=== PATIENT | male | born 1960 | race Caucasian/White ===

== ENCOUNTER 2024-11-22 11:34 | Outpatient (CLI) | payer OTHER, SELFPAY ==
--- OUTSIDE RECORDS SUMMARY | 2024-11-22 11:59 | XMS_ITS | Patient Health Record ---
Author Organization Formerly [facility], Later [facility] dicine Address [address] [place] [address] Care Team Providers Care Directory Operator Name Role Phone Dr. Sushma Ellington Primary Care Provider [phone] Wilner Frias Unavailable [phone] Migration, Provider Unavailable Unavailable Allergies No Known Allergies Results Component Value Reference Range Notes CBC w/ Diff Reviewed date:12/03/2023 12:00:00 AM Interpretation: Performing Lab: Notes/Report: Baso Absolute 0.1 x10*3/mcL Basophil Auto 0.9 % Eos Absolute 0.3 x10*3/mcL Eosinophil Auto 4.8 % Hct 45.1 % Hgb 15.0 g/dL Lymph Absolute 1.2 x10*3/mcL Lymph Auto 18.9 % MCH 30.2 pg MCHC 33.3 g/dL MCV 90.8 fL Mcclain Absolute 0.5 x10*3/mcL Mcclain Auto 7.9 % MPV 8.7 fL Neutro Absolute 4.4 x10*3/mcL Neutro Auto 67.5 % Platelets 218 K/mcL RBC 4.96 x10*6/mcL RDW 13.8 % WBC 6.6 K/mcL Comprehensive Metabolic Pane l Reviewed date:12/03/2023 12:00:00 AM Interpretation: Performing Lab: Notes/Report: Albumin Lvl 4.2 g/dL Albumin/Globulin Ratio 1.9 Alk Phos 86 unit/L ALT 57 unit/L ANION GAP 4.2 mmol/L AST 28 unit/L Bilirubin Total 0.7 mg/dL BUN 17 mg/dL Calcium Lvl 9.1 mg/dL Chloride Lvl 107 mmol/L CO2 29 mmol/L Creatinine Lvl 1.00 mg/dL eGFR CKD-EPI 85 mL/min/1.73 m2 Glucose Lvl 102 mg/dL Potassium Lvl 4.8 mmol/L Protein Total 6.5 g/dL Sodium Lvl 140 mmol/L Hemoglobin A1c {Glycosylated } Reviewed date:12/03/2023 12:00:00 AM Interpretation: Performing Lab: Notes/Report: eAvg Glucose 128 mg/dL Hemoglobin A1c 6.1 % Lipid Panel {Chol, Trig, HDL , LDL} Reviewed date:12/03/2023 12:00:00 AM Interpretation: Performing Lab: Notes/Report: Chol/HDL 5 Cholesterol Total 130 mg/dL Coronary Risk 22 % HDL 28 mg/dL LDL 86 mg/dL NON HDL CHOLESTEROL 102 mg/dL Triglycerides 78 mg/dL T4 Free Reviewed date:12/03/2023 12:00:00 AM Interpretation: Performing Lab: Notes/Report: T4 Free 0.76 ng/dL Thyroid Stimulating Hormone Reviewed date:12/03/2023 12:00:00 AM Interpretation: Performing Lab: Notes/Report: TSH 3.09 mcIU/mL Vitamin B12 Reviewed date:12/03/2023 12:00:00 AM Interpretation: Performing Lab: Notes/Report: Vitamin B12 Lvl 580 pg/mL Vitamin D 25 Hydroxy Reviewed date:12/03/2023 12:00:00 AM Interpretation: Performing Lab: Notes/Report: Vitamin D 25 OH 37 ng/mL Chest X-ray PA and lateral Reviewed date:10/07/2024 02:27:34 PM Interpretation: Performing Lab: Notes/Report: Comprehensive Metabolic Pane l Reviewed date:01/09/2024 12:00:00 AM Interpretation: Performing Lab: Notes/Report: Albumin Lvl 4.4 g/dL Albumin/Globulin Ratio 1.7 Alk Phos 81 unit/L ALT 44 unit/L ANION GAP 4.8 mmol/L AST 25 unit/L Bilirubin Total 0.7 mg/dL BUN 19 mg/dL Calcium Lvl 9.3 mg/dL Chloride Lvl 109 mmol/L CO2 26 mmol/L Creatinine Lvl 0.95 mg/dL eGFR CKD-EPI 90 mL/min/1.73 m2 Glucose Lvl 102 mg/dL Potassium Lvl 5.1 mmol/L Protein Total 7.0 g/dL Sodium Lvl 140 mmol/L PSA Annual Screening Reviewed date:01/09/2024 12:00:00 AM Interpretation: Performing Lab: Notes/Report: PSA Total 4.44 ng/mL Reason For Referral Reason elevated PSA Diagnosis 1 Elevated prostate sp ecific antigen [PSA] (R97.20) Referral Organization [facility] Referring Provider First Name Dr. Ordaz Referring Provider Last Name [place] Referring Provider [facility] taran Referred Provider Marbin Dee Referred Provider Specialty Urology General Notes Sofya Templeton 06/03 03:03:14 PM DIET ASSISTANT >this was ordered in - they made a chart, but stated no clinical documents were uploaded. Referral team can you refax labs and OV for this. Was originally sent in Mar 2024? The person I spoke to in the office stated to fax to [phone] and they will call pt now to schedule an appt., Yamini Gould 06/03/2024 04:47:10 PM DIET ASSISTANT >Faxed referral with OV and labs to Dr. Dee Clinical Notes Sofya Templeton 06/24 02:56:41 PM DIET ASSISTANT >consult note in chart. Referral Priority Stat Referral Appointment Date 06/07/2024 Medications Medication SIG (Take, Route, Frequency, Duration) Notes Start Date End Date Status Vitamin C oral; Duration: 0 *Pick strength-form from [facility] for eRX* 12/05/2021 Active Zinc oral; Duration: 0 *Pick strength-form from [facility] for eRX* 12/05/2021 Active Vitamin B Complex oral; Duration: 0 *Pick strength-form from [facility] for eRX* 12/05/2021 Active Omeprazole 20 MG Capsule Delayed Release 1 Oral every day; Duration: 90 12/08/2023 12/01/2024 Active predniSONE 20 MG Tablet 2 tablets Orally Once a day; Duration: 5 days take with food 05/21/2024 Active Levothyroxine Sodium 50 MCG Tablet 1 Oral every day; Duration: 90 12/08/2023 12/01/2024 Active Vitamin D3 oral; Duration: 0 *Pick strength-form from [facility] for eRX* 12/05/2021 Active Immunizations Vaccine Route Administration Date Status Comme nts Zoster IM Intramuscular 12/05/2021 Administered ,[facility] : New immunization record ,immstatus : Complete Zoster IM Intramuscular 02/27/2022 Administered ,[facility] : New immunization record ,immstatus : Complete Tdap Unknown 03/16/2011 Administered ,sourcename : Historical information -from other registry Source C Code: : Tdap IM Intramuscular 01/02/2016 Administered Source VFC Code: : MMR Unknown 12/02/2018 Administered ,sourcename : Historical information -from other registry Source VFC Code: : Social History Social History Additional Details Category Social Info Options Details Migrated Social History Migrated Social History Tobacco history:Currently uses smokeless tobacco Problems Problem Type SNOMED Code ICD Code Onset Dates Problem Status W/U Status Risk Notes Problem Generalized atopic dermatitis (055243254) Other atopic dermatitis and related conditions (691.8) 06/12/19 17 Active confirmed Problem Actinic keratosis (402749) Actinic keratosis (702.0) 06/12/19 17 Active confirmed Problem Arthralgia of the pelvic region and thigh (893600908) Pain in joint, pelvic region and thigh (719.45) 10/24/19 17 Active confirmed Problem Pain in limb (20443620) Pain in soft tissues of limb (729.5) 11/06/19 16 Active confirmed Problem General examination of patient (858466047) Routine general medical examination at health care facility (V70.0) 06/12/19 17 Active confirmed Problem Hypothyroidism (11549645) Hypothyroidism, unspecified (E03.9) 12/04/19 22 Active confirmed Problem Vitamin B deficiency (46160142) Deficiency of other specified B group vitamins (E53.8) 12/05/19 23 Active confirmed Problem Acute atopic conjunctivitis (52667346) Acute atopic conjunctivitis, unspecified eye (H10.10) 12/08/19 24 Active confirmed Problem Actinic keratosis (855070) Actinic keratosis (L57.0) 06/09/19 24 Active confirmed Problem Seborrheic keratosis (29910664) Other seborrheic keratosis (L82.1) 06/09/19 24 Active confirmed Problem Hypertrophic condition of skin (14477857) Other hypertrophic disorders of the skin (L91.8) 12/06/19 22 Active confirmed Problem Enthesopathy of knee (72409080) Other bursitis of knee, unspecified knee (M70.50) 12/18/19 24 Active confirmed Problem Screening for malignant neoplasm of prostate (384492323) Encounter for screening for malignant neoplasm of prostate (Z12.5) 12/04/19 22 Active confirmed Problem Tobacco use (582503461) Tobacco use (Z72.0) 12/02/19 24 Active confirmed Problem Elevated PSA (376323489) Elevated prostate specific antigen [PSA] (R97.20) 01/09/20 24 Active confirmed Problem Acquired hypothyroidism (003731628) Other specified acquired hypothyroidism (244.8) 09/26/19 19 Problem resolved confirmed Problem Psychosexual dysfunction associated with inhibited sexual excitement (361146923608495) 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) 06/12/19 17 Problem resolved confirmed Problem Tobacco user (460193160) Nondependent tobacco use disorder (305.1) 11/06/19 16 Problem resolved confirmed Problem Allergic rhinitis (10820645) Allergic rhinitis, cause unspecified (477.9) 09/26/19 19 Problem resolved confirmed Problem Acute bronchitis (68941987) Acute bronchitis (466.0) 11/06/19 16 Problem resolved confirmed Problem Cramp in limb (939172249) Cramp of limb (729.82) 09/26/19 19 Problem resolved confirmed Problem Spasm (71472701) Spasm of muscle (728.85) 11/06/19 16 Problem resolved confirmed Problem Malaise and fatigue (791880196) Other malaise and fatigue (780.79) 09/26/19 19 Problem resolved confirmed Problem Viral screening (888882558) Special screening examination for other specified viral diseases (V73.89) 06/12/19 17 Problem resolved confirmed Problem Male erectile disorder (766390238) Male erectile disorder (F52.21) 06/12/19 17 Problem resolved confirmed Problem Acute pansinusitis (5891357) Acute pansinusitis, unspecified (J01.40) 11/06/19 16 Problem resolved confirmed Problem Acute bronchitis (05598085) Acute bronchitis, unspecified (J20.9) 11/06/19 16 Problem resolved confirmed Problem Allergic rhinitis (89386646) Allergic rhinitis, unspecified (J30.9) 09/26/19 19 Problem resolved confirmed Problem Atopic dermatitis (83259382) Atopic dermatitis, unspecified (L20.9) 06/12/19 17 Problem resolved confirmed Problem Arthralgia of the pelvic region and thigh (398075144) Pain in right hip (M25.551) 10/24/19 17 Problem resolved confirmed Problem Spasm (04772311) Other muscle spasm (M62.838) 11/06/19 16 Problem resolved confirmed Problem Pain in left leg (189274658) Pain in left leg (M79.605) 11/06/19 16 Problem resolved confirmed Problem Blood chemistry abnormal (684098457) Other specified abnormal findings of blood chemistry (R79.89) 12/07/19 22 Problem resolved confirmed Problem History of thromboembolism of vein (536498422) Personal history of other venous thrombosis and embolism (Z86.718) 11/06/19 16 Problem resolved confirmed Problem Screening for malignant neoplasm of prostate (050163642) Special screening for malignant neoplasm of prostate (V76.44) 09/26/19 19 Problem resolved confirmed Problem Ganglion cyst (761090560) Ganglion, unspecified site (M67.40) 06/09/19 24 Active confirmed Problem Gastro-esophageal reflux disease without esophagitis (880593664) Gastro-esophageal reflux disease without esophagitis (K21.9) 12/04/19 22 Active confirmed Problem Vitamin D deficiency (85232367) Vitamin D deficiency, unspecified (E55.9) 12/05/19 23 Active confirmed Problem Lipoma (17128878) Benign lipomat ous neoplasm, 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) 12/06/19 22 Active confirmed Problem Tinea unguium (589481591) Tinea unguium (B35.1) 12/08/19 24 Active confirmed Problem Esophageal reflux (360842470) Esophageal reflux (530.81) 11/06/19 16 Active confirmed Problem Enlarged prostate (758276835) Enlarged prostate without lower urinary tract symptoms (N40.0) 05/22/20 22 Active confirmed Problem Hyperglycemia (69734122) Hyperglycemia, unspecified (R73.9) 12/06/19 22 Active confirmed Problem Viral screening (748398475) Encounter for screening for other viral diseases (Z11.59) 06/12/19 17 Problem resolved confirmed Problem Family history: Cardiovascular disease (situation) (093225437) Family history of other cardiovascular diseases (V17.4) 11/06/19 16 Problem resolved confirmed Problem Acute sinusitis (disorder) (95221111) Other acute sinusitis (461.8) 11/06/19 16 Problem resolved confirmed Problem Prediabetes (472272047) Prediabetes (R73.03) 12/07/19 23 Active confirmed Problem Immunization not carried out because of patient refusal (Z28.21) 12/06/19 22 Active confirmed Problem Vaccination given (825144447) Encounter for immunization (Z23) 12/06/19 22 Active confirmed Problem Adult health examination (891026100) Encounter for general adult medical examination without abnormal findings (Z00.00) 12/06/19 22 Active confirmed Problem Pain in limb (51246610) Pain in right toe(s) (M79.674) 06/09/19 24 Active confirmed Problem Knee joint effusion (647481272) Effusion, right knee (M25.461) 12/26/19 24 Active confirmed Problem Umbilical hernia (374912920) Umbilical hernia without obstruction or gangrene (K42.9) 12/08/19 24 Active confirmed Problem Fatigue (30693608) Other fatigue (R53.83) 09/26/19 19 Problem resolved confirmed Problem Spasm (57452753) Cramp and spasm (R25.2) 09/26/19 19 Problem resolved confirmed Problem Vaccination needed (008731805392441) Need for prophylactic vaccination and inoculation, Other viral diseases (V04.89) 09/26/19 19 Problem resolved confirmed Vital Signs Heart Rate 106 /min 05/21/2024 Temperature 96.9 degrees Fahrenheit 05/21/2024 Respiratory Rate 24 /min 05/17/2024 Height-cm 182.88 cm 05/21/2024 Oximetry 96 % 05/21/2024 Blood pressure diastolic 88 mm Hg 05/21/2024 Weight-kg 126.35 kg 01/08/2024 Height 72.00 in 05/21/2024 Blood pressure systolic 130 mm Hg 05/21/2024 Weight 278.55 lbs 01/08/2024 Encounters Encounter Location Date Provider Diagnosis [facility] [address] [place] [address] 12/02/2023 Provider Migration Tobacco use Z72.0 ; Vitamin D deficiency, unspecified E55.9 ; Encounter for general adult medical examination without abnormal findings Z00.00 ; Hyperglycemia, unspecified R73.9 ; Prediabetes R73.03 ; Deficiency of other specified B group vitamins E53.8 and Hypothyroidism, unspecified E03.[address] [address] 12/08/2023 Dr. Sushma Ellington Vitamin D deficiency, unspecified E55.9 ; Encounter for general adult medical examination without abnormal findings Z00.00 ; Gastro-esophageal reflux disease without esophagitis K21.9 ; Acute atopic conjunctivitis, unspecified eye H10.10 ; Prediabetes R73.03 ; Umbilical hernia without obstruction or gangrene K42.9 ; Deficiency of other specified B group vitamins E53.8 ; Encounter for screening for malignant neoplasm of prostate Z12.5 ; Hypothyroidism, unspecified E03.9 and Tinea unguium B35.[address] [address] 12/18/2023 Wilner Rodriguez Other bursitis of knee, unspecified knee M70.[address] [address] 12/26/2023 Wilner Rodriguez Effusion, right knee M25.461 and Other bursitis of knee, unspecified knee M70.[address] [address] 01/08/2024 Wilner Rodriguez Effusion, right knee M25.461 and Other bursitis of knee, unspecified knee M70.[address] [address] 01/09/2024 Provider Migration Other bursitis of knee, unspecified knee M70.50 ; Elevated prostate specific antigen [PSA] R97.20 and Tobacco use Z72.[address] [address] 01/13/2024 Provider Migration Elevated prostate specific antigen [PSA] R97.20 and Tobacco use Z72.[address] [address] 04/09/2024 Provider Migration Tinea unguium B35.1 ; Tobacco use Z72.0 and Elevated prostate specific antigen [PSA] R97.[address] [address] 04/13/2024 Provider Migration Elevated prostate specific antigen [PSA] R97.20 and Tobacco use Z72.[address] [address] 05/17/2024 Dr. Sushma Ellington Acute cough R05.1 ; Acute non-recurrent sinusitis, unspecified location J01.90 ; Acute pneumonia J18.9 and Seborrheic keratosis L82.[address] [address] 05/21/2024 Dr. Sushma Ellington Acute pneumonia J18.9 and Acute cough R05.[address] [address] 04/24/2024 Provider Migration [address] [address] 04/25/2024 Provider Migration Assessments Encounter Date Diagnosis (ICD Code) Assessment Notes Treatment Notes Treatment Clinical Notes Section Notes 04/09/2024 Tinea unguium (ICD-10 - B35.1) 04/09/2024 Tobacco use (ICD-10 - Z72.0) 04/09/2024 Elevated prostate specific antigen [PSA] (ICD-10 - R97.20) 01/09/2024 Other bursitis of knee, unspecified knee (ICD-10 - M70.50) 01/09/2024 Tobacco use (ICD-10 - Z72.0) 01/09/2024 Elevated prostate specific antigen [PSA] (ICD-10 - R97.20) 01/08/2024 Effusion, right knee (ICD-10 - M25.461) 01/08/2024 Other bursitis of knee, unspecified knee (ICD-10 - M70.50) 12/26/2023 Effusion, right knee (ICD-10 - M25.461) 12/26/2023 Other bursitis of knee, unspecified knee (ICD-10 - M70.50) 12/08/2023 Tinea unguium (ICD-10 - B35.1) 12/08/2023 Hypothyroidism, unspecified (ICD-10 - E03.9) 12/08/2023 Deficiency of other specified B group vitamins (ICD-10 - E53.8) 12/08/2023 Vitamin D deficiency, unspecified (ICD-10 - E55.9) 12/08/2023 Acute atopic conjunctivitis, unspecified eye (ICD-10 - H10.10) 12/08/2023 Gastro-esophagea l reflux disease without esophagitis (ICD-10 - K21.9) 12/08/2023 Umbilical hernia without obstruction or gangrene (ICD-10 - K42.9) 12/08/2023 Encounter for general adult medical examination without abnormal findings (ICD-10 - Z00.00) 12/08/2023 Encounter for screening for malignant neoplasm of prostate (ICD-10 - Z12.5) 12/08/2023 Prediabetes (ICD-10 - R73.03) 01/13/2024 Tobacco use (ICD-10 - Z72.0) 01/13/2024 Elevated prostate specific antigen [PSA] (ICD-10 - R97.20) 05/21/2024 Acute cough (ICD-10 - R05.1) 05/21/2024 Acute pneumonia (ICD-10 - J18.9) CXR doesn't show infiltrate but does show some hazy appearance. continue moxifloxacin start codeine for the severe cough start prednisone consider adding symbicort call if not improving next week 12/18/2023 Other bursitis of knee, unspecified knee (ICD-10 - M70.50) 04/13/2024 Tobacco use (ICD-10 - Z72.0) 04/13/2024 Elevated prostate specific antigen [PSA] (ICD-10 - R97.20) 12/02/2023 Hypothyroidism, unspecified (ICD-10 - E03.9) 12/02/2023 Deficiency of other specified B group vitamins (ICD-10 - E53.8) 12/02/2023 Vitamin D deficiency, unspecified (ICD-10 - E55.9) 12/02/2023 Hyperglycemia, unspecified (ICD-10 - R73.9) 12/02/2023 Encounter for general adult medical examination without abnormal findings (ICD-10 - Z00.00) 12/02/2023 Tobacco use (ICD-10 - Z72.0) 12/02/2023 Prediabetes (ICD-10 - R73.03) 05/17/2024 Acute cough (ICD-10 - R05.1) 05/17/2024 Acute non-recurrent sinusitis, unspecified location (ICD-10 - J01.90) 05/17/2024 Acute pneumonia (ICD-10 - J18.9) Recommend consideration for a chest x-ray if not improving but for today we'll start antibiotics and get a steroid shot to help with the cough since it's severe period consider codeine cough syrup if needed. Use mucinex DM OTC. Call later in the week if not better and will order CXR. 05/17/2024 Seborrheic keratosis (ICD-10 - L82.1) reassurance given for these skin lesions Plan Of Treatment Next Appt Details Provider Name:Dr. Sushma ibarra, 01/20/2025 11:00:00 AM, [address] [place] [address], [address], [phone] Insurance Providers Payer Name Payer Address Payer Phone Subscriber Number Group Number Insured Name Patient Relationship to Insured Coverage Start Date Coverage End Date [facility] [address] [address] [place] [address] [id number] Donnie Gutierrez Self - patient is the insured 3 Medications Administered Medication Instructions Date of Administration Dosage Notes dexAMETHasone 05/17/2024 6 mg Medical (General) History Surgical History Surgery Date(Month/Year) Arthroscopy ,notes : knee Colonoscopy, flexible, proxi mal to splenic flexure; diagnostic, with or without collection of specim 7
--- OUTSIDE RECORDS SUMMARY | 2024-11-22 11:59 | XMS_ITS | Clinical Summary ---
Author Organization [facility] Health Address [address] [place] [address] Care Team Providers Care Agriculture Technician Name Role Phone Sushma Ellington MD Primary Care Provider Source Comments [facility],non-owned Affiliates and Associated Physician Practices is amultiple site organization consisting of ambulatory clinics and hospital sitesin [place], [place], [place] and [place]. This disclosure is being madepursuant to the Care Everywhere program and may not contain all information available regarding this patient. 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 Gender Identity Not on file Sexual Orientation Not on file Last Filed Vital Signs Vital Sign Reading Time Taken Comments Blood Pressure 105/68 01/07/2012 11:46 AM CDT Pulse 76 01/07/2012 10:32 AM CDT Temperature 36.5 C (97.7 F) 01/07/2012 10:32 AM CDT Respiratory Rate 18 01/07/2012 10:32 AM CDT Oxygen Saturation 94% 01/07/2012 11:46 AM CDT Inhaled Oxygen Concentration - - Weight 117.9 kg (260 lb) 01/07/2012 10:32 AM CDT Height 182.9 cm (6') 01/07/2012 10:32 AM CDT Body Mass Index 35.26 01/07/2012 10:32 AM CDT Plan of Treatment Health Maintenance Due Date Last Done Comments COLOGUARD (AGES 45-75) - COL ON CA SCREENING 1961 COLON MONITORING 1961 COLONOSCOPY - COLON CA SCREENING 1961 CT COLONOGRAPHY - COLON CA SCREENING 1961 Colorectal Cancer Screening 1961 FIT - COLON CA SCREENING 1961 FLEX SIG - COLON CA SCREENING 1961 LIPID TESTING 1961 HIV SCREENING 1976 HEPATITIS C SCREENING 07/16/1979 DTAP/TDAP/TD VACCINES (1 - Tdap) 1980 PNEUMOCOCCAL VACCINE 50+ (1 of 1 - PCV) 2011 ZOSTER VACCINE (1 of 2) 2011 COVID-19 VACCINE ( - 2023-2 5 season) 2024 DEPRESSION SCREENING 05/26/2024 INFLUENZA VACCINE (Season Ended) 2025 Respiratory Syncytial Virus (RSV) Vaccine Pt: or over 60 yrs (1 - 1-dose 75+ series) 2036 HEPATITIS B VACCINE Aged Out No longe r eligible based on patient's age to complete this topic HIB VACCINE Aged Out No longer eligi ble based on patient's age to complete this topic HPV VACCINE Aged Out No longer eligi ble based on patient's age to complete this topic MENINGOCOCCAL (Group B) VACC INE SHARED DECISION-MAKING Aged Out No longer eligibl e based on patient's age to complete this topic MENINGOCOCCAL GROUPS A/C/Y/W VACCINE Aged Out No longer eligible b ased on patient's age to complete this topic Insurance [facility] Care Teams Agriculture Technician Relationship Specialty Start Date End Date Sushma Ellington MD [address] [place] [id number] PCP - General Family Medicine 02/06/24
--- OUTSIDE RECORDS SUMMARY | 2024-11-22 11:59 | XMS_ITS | Clinical Summary ---
Author Organization [facility] Address [address] [place] [address] Phone Care Team Providers Care Geospatial Technician Name Role Phone Sushma Ellington MD Primary Care Provider Allergies No known active allergies Medications levothyroxine (SYNTHROID) 50 MCG Tablet Take 50 mcg by mouth daily. Active omeprazole (PRILOSEC) 40 MG CAPSULE DELAYED RELEASE Take 40 mg by mouth daily. Active Social History Tobacco Use Types Packs/Day Years Used Date Smoking Tobacco: Never Smokeless Tobacco: Current Chew Alcohol Use Standard Drinks/Week Comments Yes 0 (1 standard drink = 0.6 oz pur e alcohol) rare Sex and Gender Information Value Date Recorded Sex Assigned at Not on file Legal Sex Male 8:44 PM CDT Gender Identity Not on file Sexual Orientation Not on file Last Filed Vital Signs Vital Sign Reading Time Taken Comments Blood Pressure 121/80 01/30/2019 11:57 AM CDT Pulse 66 01/30/2019 11:57 AM CDT Temperature 36.9 C (98.4 F) 01/30/2019 10:17 AM CDT Respiratory Rate 18 01/30/2019 11:57 AM CDT Oxygen Saturation 95% 01/30/2019 11:57 AM CDT Inhaled Oxygen Concentration - - Weight 117.9 kg (260 lb) 01/30/2019 10:17 AM CDT Height 193 cm (6' 4) 01/30/2019 10:17 AM CDT Body Mass Index 31.65 01/30/2019 10:17 AM CDT Plan of Treatment Health Maintenance Due Date Last Done Comments Hepatitis C Virus (HCV) Screening 1960 Cologuard 2006 Colonoscopy 2006 Colorectal Cancer Screening 2006 Immunochemical Fecal Occult Blood 2006 Pneumococcal Immunization (50+ years) (1 of 1 - PCV) 2011 Zoster Immunization (1 of 2) 2011 SARS-COV-2 Immunization (1 - 2023- season) 2024 Influenza Immunization (Season Ended) 2025 Respiratory Syncytial Virus (RSV) Immunization (Adult) (1 - 1-dose 75+ series) 2036 Hepatitis B Immunization Completed 002, 08/20/2001, 06/23/2001, Additional history exists DTaP/Tdap/Td Immunization Discontinued 2015, 03/16/2011, 09/09/2003, Additional history exists TdaP Immunization Completed 01/02/2016, 03/16/2011 Human Papillomavirus (HPV) Immunization Aged Out No longer eligible based on patient's age to complete this topic Meningococcal Immunization (ACWY) Aged Out No longer eligible based on patient's age to complete this topic Rotavirus Immunization Aged Out No lo nger eligible based on patient's age to complete this topic Insurance Care Teams Geospatial Technician Relationship Specialty Start Date End Date Sushma Ellington MD PCP - General Family Medicine 01/29/19
--- OUTSIDE RECORDS SUMMARY | 2024-11-22 11:59 | XMS_ITS | Clinical Summary ---
Author Organization [employer] [facility] Address [address] [place] [address] Phone Care Team Providers Care Water Jet Operator Name Role Phone Sushma Ellington MD Primary Care Provider Allergies No known active allergies Medications omeprazole (PRILOSEC) 40 mg Capsule, Delayed Release(E.C.) Take 40 mg by mouth daily. Active multivitamin (DAILY-ALMITA) tablet Take 1 Tablet by mouth daily. Active Cholecalciferol, Vitamin D3, 3,000 unit Tablet Take by mouth. Active levothyroxine 50 mcg tablet Take 50 mcg by mouth daily in the morning. Active Family History Medical History Relation Name Comments Colon Cancer Brother Relation Name Status Comments Brother Social History Tobacco Use Types Packs/Day Years Used Date Smoking Tobacco: Never Smokeless Tobacco: Current Chew Alcohol Use Standard Drinks/Week Comments Yes 0 (1 standard drink = 0.6 oz pur e alcohol) social Sex and Gender Information Value Date Recorded Sex Assigned at Not on file Legal Sex Male 11:30 AM CDT Gender Identity Not on file Sexual Orientation Not on file Last Filed Vital Signs Vital Sign Reading Time Taken Comments Blood Pressure 102/71 01/31/2021 9:26 AM CDT Pulse 58 01/31/2021 9:26 AM CDT Temperature 36.7 C (98 F) 01/31/2021 9:10 AM CDT Respiratory Rate 16 01/31/2021 9:26 AM CDT Oxygen Saturation 96% 01/31/2021 9:26 AM CDT Inhaled Oxygen Concentration - - Weight 120.1 kg (264 lb 12.8 oz) 01/31/2021 7:58 AM CDT Height 182.9 cm (6') 01/31/2021 7:58 AM CDT Body Mass Index 35.91 01/31/2021 7:58 AM CDT Plan of Treatment Health Maintenance Due Date Last Done Comments DTAP/TDAP/TD VACCINES (1 - Tdap) 1980 FIT-DNA Q 3 years 2006 FIT/FOBT Q 1 year 2006 Flex Sig/CT Colonography Q 5 years 2006 ZOSTER VACCINE (1 of 2) 2011 INFLUENZA VACCINE (#1) 2023 COLORECTAL SCREENING 01/31/2026 01/31/2021, 01/31/2021, 01/31/2021, Additional history exists Colorectal Cancer Screening 01/31/2026 RSV VACCINE (60+ or ) (1 - 1-dose 75+ series) 2036 Procedures Procedure Name Priority Date/Time Associated Diagnosis Comments COLONOSCOPY REPORT 01/31/2021 9: 13 AM CDT from Last 3 Months or Most Recently Relevant to Health Maintenance Results * COLONOSCOPY REPORT (01/31/2021 9:13 AM CDT) Narrative Procedure Note Gunnar Tomas MD - 01/31/2021 9:11 AM CDT [facility] Endoscopy Patient Name: Donnie Gutierrez Procedure Date: 01/31/2021 Date of : 1960 Attending MD: Gunnar Tomas MD Procedure: Colonoscopy Indications: High risk colon cancer surveillance: Personal history of colonic polyps. He had adenomatous polyp removed in 2000. He had 1.8 cm adenoma removed in 2010. Last colonoscopy in 2016 without neoplasia. Brother of metastatic colon cancer age 59. Providers: Gunnar Tomas MD Referring MD: Sushma Ellington MD Medicines: TIVA Complications: No immediate complications. Procedure: Informed consent was obtained for the procedure, including moderate sedation after risks were discussed. Based on the pre-procedure assessment, including review of the patient's medical history, medications, allergies, and review of systems, the patient was deemed to be an appropriate candidate for sedation. A timeout was performed. Continuous ECG monitoring, pulse oximetry, blood pressure monitoring, and direct observation were performed. The scope was introduced through the anus and advanced to the cecum, identified by appendiceal orifice and ileocecal valve. The colonoscopy was performed without difficulty. The patient tolerated the procedure well. The quality of the bowel preparation was excellent. Estimated Blood Loss: Estimated blood loss was minimal. Findings: Internal hemorrhoids were seen on retroflexion. There was a benign appearing 2 mm diameter diminutive left colon polyp completely removed via cold forceps. Remainder appeared normal to the cecum. No evidence for colon cancer or inflammatory bowel disease. Cecum and ileocecal valve well visualized and appeared normal. Impression: 1. Internal hemorrhoids 2. Benign appearing 2 mm diameter diminutive left colon polyp completely removed via cold forceps. 3. Otherwise normal colonoscopy. No colon cancer or inflammatory bowel disease. Recommendation: Reassurance. Await pathology. Repeat colonoscopy in 5 years due to high risk personal/family history and finding of diminutive polyp on current exam. Follow up with Dr. Ellington for medical issues. Gunnar Tomas MD 01/31/2021 9:10:58 AM This report has been signed electronically. Number of Addenda: [address]; [place] [address] Gunnar Tomas MD GI PROCEDURE ORDERABLES Final Re sult from Last 3 Months or Most Recently Relevant to Health Maintenance Advance Directives For more information, please contact: [phone] * Full Code (Latest Code Status on File) Date Activated Date Inactivated Comments 01/31/2021 8:06 AM 01/31/2021 12:35 PM * Full Code Date Activated Date Inactivated Comments 08/25/2015 8:59 AM 08/25/2015 2:49 PM Care Teams Water Jet Operator Relationship Specialty Start Date End Date Sushma Ellington MD PCP - General Family Practice 08/16/15
--- OUTSIDE RECORDS SUMMARY | 2024-11-22 11:59 | XMS_ITS ---
Author Organization [facility] Address [address] [place] [id number] Care Team Providers Care Content Designer Name Role Phone Dr. Sushma Ellington Primary Care Provider [phone] Migration, Provider Unavailable Unavailable Allergies No Known Allergies REASON FOR VISIT EMR-Kofi Medications Medication SIG (Take, Route, Frequency, Duration) Notes Start Date End Date Status Levothyroxine Sodium 50 MCG Tablet 1 Oral every day; Duration: 90 12/08/2023 12/01/2024 Active Zinc oral; Duration: 0 *Pick strength-form from [employer] for eRX* 12/05/2021 Active Vitamin B Complex oral; Duration: 0 *Pick strength-form from [employer] for [facility]RX* 12/05/2021 Active Omeprazole 20 MG Capsule Delayed Release 1 Oral every day; Duration: 90 12/08/2023 12/01/2024 Active Vitamin C oral; Duration: 0 *Pick strength-form from [employer] for [facility]* 12/05/2021 Active Vitamin D3 oral; Duration: 0 *Pick strength-form from [employer] for [facility]* 12/05/2021 Active Social History Social History Additional Details Category Social Info Options Details Migrated Social History Migrated Social History Tobacco history:Currently uses smokeless tobacco Encounters Encounter Location Date Provider Diagnosis [facility] [address] [place] [address] 04/25/2024 Provider Migration Plan Of Treatment Next Appt Details Provider Name:Dr. Ordaz [facility], 01/20/2025 11:00:00 AM, [address] [place] [address] [employer] [facility], [place], [address], [phone] Progress Notes * Donnie GOODEDOB:1960 (64 yo M)Acc No.[id number]:04/25/2024 Patient: Donnie MEADE :1960 A ge:63 Y S ex:Male Address:[address] [place] [address], [phone] Subjective: * Chief Complaints: * E MR-Kofi * Surgical History: Arthroscopy ,notes : knee Colonoscopy, flexible, proximal to splenic flexure; diagnostic, with or without collection of specim 7 * Family History: Robert alicea: Colon Cancer. * Social History: M igrated Social History: M igrated Social History: Tobacco history:Currently uses smokeless tobacco. * Medications: T akingVitamin D3 oral , Notes to Pharmacist: *[facility]Zinc oral , Notes to Pharmacist: *[facility]*Vitamin B Complex oral , Notes to Pharmacist: *[facility]*Omeprazole 20 MG Capsule Delayed Release 1 Oral every day , stop date 12/01/2024Levothyroxine Sodium 50 MCG Tablet 1 Oral every day , stop date 12/01/2024Vitamin C oral , Notes to Pharmacist: *[facility]*Taking Vitamin D3 oral , Notes to Pharmacist: *[facility]*Taking Zinc oral , Notes to Pharmacist: *Pick strength-form from [facility]*Taking Vitamin B Complex oral , Notes to Pharmacist: *[facility]*Taking Omeprazole 20 MG Capsule Delayed Release 1 Oral every day , stop date 12/01/2024Taking Levothyroxine Sodium 50 MCG Tablet 1 Oral every day , stop date 12/01/2024Taking Vitamin C oral , Notes to Pharmacist: *[facility]* * Allergies: N .K.D.A. * * Date:
--- NOTE | 2024-11-22 12:20 | ECG_ITS ---
Test Date: 2024-11-22 12:37:42 Measurements Intervals Crawford Rate: 57 P: 42 ND: 174 QRS: -26 QRSD: 97 T: 17 QT: 400 QTc: 392 Interpretive Statements SINUS BRADYCARDIA EARLY PRECORDIAL R/S TRANSITION BORDERLINE T WAVE ABNORMALITY- INFERIOR LEADS BORDERLINE ECG No previous ECG available for comparison Electronically Signed On 11-22-2024 12:56:33 CDT by Martell Neri D.O.
[2024-11-22 13:10] LABS: Basophils Percent Auto 0.5 % (0.2-1.2); Eosinophils Absolute Auto 0.3 K/mm3 (0-0.3); Eosinophils Percent Auto 3.1 % (0-4.4); Hematocrit 48.1 % (42.0-52.0); Hemoglobin 15.5 g/dL (14.0-18.0); Immature Granulocyte Absolute 0.02 K/mm3 (0.00-0.031); Immature Granulocyte Percent A 0.2 % (0-0.5); Lymphocytes Absolute Auto 1.69 K/mm3 (0.9-3.2); Lymphocytes Percent Auto 20.3 % (18.3-44.2); Mean Corpuscular HGB Conc 32.2 g/dl (32-36); Mean Corpuscular Volume 93.2 fl (80-100); Mean Platelet Volume 10.1 fl (7.4-10.4); Monocytes Absolute Auto 0.6 K/mm3 (0.1-0.6); Monocytes Percent Auto 7.2 % (2.6-8.5); Neutrophils Absolute Auto 5.7 K/mm3 (1.3-6.7); Neutrophils Percent Auto 68.7 % (45.5-73.1); Platelet Count Result 235 k/mm3 (150-375); Red Blood Count 5.16 M/mm3 (4.6-6.20); Red Cell Distribution Width 13.2 % (11.5-14.5); White Blood Count 8.3 K/mm3 (4.5-10.0)
[2024-11-22 13:30] LABS: Prothrombin Time 13.4 Seconds (11.1-14.7)
[2024-11-22 13:31] LABS: Partial Thromboplastin Time 29.2 Seconds (22.3-36.8)
[2024-11-22 13:53] LABS: Alanine Aminotransferase 60 U/L (6-50); Albumin Level 4.2 g/dL (3.5-5.1); Alkaline Phosphatase 106 U/L (38-126); Anion Gap 8 mmol/L (4-12); Aspartate Amino Transferase 38 U/L (17-59); Bilirubin,Total 0.5 mg/dL (0.2-1.3); Blood Urea Nitrogen 16 mg/dL (9-20); Calcium 8.9 mg/dL (8.4-10.2); Carbon Dioxide 26 mmol/L (22-30); Chloride 107 mmol/L (98-107); Estimated Glomerular Filt Rate > 60; Glucose 111 mg/dL (65-110); Potassium 4.7 mmol/L (3.4-5.0); Sodium 141 mmol/L (137-145); Total Protein 7.1 g/dL (6.3-8.2)
== END 2024-11-22 11:35 | disposition home or self-care (01) ==
LOC: ANHSURGERY 11:40
PROVIDERS: PCP Family Medicine; Visit Provider Urology
DX: Z01.818 Encounter for other preprocedural examination (principal); C61 Malignant neoplasm of prostate; R94.31 Abnormal electrocardiogram [ECG] [EKG]
CPT/HCPCS: 36415; 80053; 85025; 85610; 85730; 86850; 86900; 86901; 87086; 93005

== ENCOUNTER 2024-11-30 00:58 | Day surgery (SDC) | payer OTHER, SELFPAY ==
[2024-11-22 12:00] VITALS: BP 138/81; PULSE 67; RESP 16; TEMP 36.8; O2SAT 100; BMI 35.9
--- NOTE | 2024-11-22 12:22 | PC.NURSE ---
Report to the Outpatient Waiting Room, entrance under the green pavilion located off [facility], at time _0630am on date _11/30/24 . Planned Procedure Time: __0830am .? Time changes happen often and if your time is changed the preop area will call you the afternoon before. - You and your visitor will be asked to self-screen and do not enter if you have any COVID symptoms. Please call surgeon if you need to reschedule. - A mask is optional within the hospital at this time. Patients may have clear liquids (water, carbonated beverages, clear teas, apple juice) until 3 hours prior to surgery with a maximum of 20 ounces. - No food from midnight until time of surgery and no smoking, or chewing tobacco (or any form of nicotine). No chewing gum, candy or mints. (05:30am) Take only the following medications with a SIP of water on the morning of surgery: Thyroxine and Tylenol if needed DO NOT STOP ANY OF YOUR OTHER PRESCRIPTION MEDICATIONS PRIOR TO SURGERY EXCEPT THE FOLLOWING Hold all vitamins and supplements for [address] Dee. Medications to discontinue per physician NO ALEVE, MOTRIN, IBUPROFEN, or ASA products for 7 days prior Date to take last dose____11/21/24 Please no make-up, nail turkmen, hairspray, perfume, deodorant, or body powder the day of surgery.? No jewelry (including any body piercings) or valuables the day of surgery, leave them at home.? Please take a shower or bath the night before, or the morning of, surgery with an antibacterial soap.? Wear comfortable, loose fitting clothing.? Bring overnight toiletries, cell phone, cell phone sub master, - Jewelry must be removed prior to entering the operating room.? Rings and piercings that are not removed may be cut off. - The hospital will not accept responsibility for valuables.? - Please leave all valuables, including medications, at home the day of surgery. If you are going home after surgery, a licensed hi low truck driver must drive you home.? - NO public transportation without another adult if you receive anesthesia. - We recommend that an adult stay with you for 24 hours following discharge. - We also recommend that you do not drive, make important decision, drink alcoholic beverages, or take any drugs that were not prescribed by your health care provider for at least 24 hours after your discharge time. Follow any additional instructions given to you from your surgeon. Telephone instructions given to _Patient & and asked if any additional questions and then verbalized understanding. Patient advised to call surgeon office or pre surgery nurse liaison [phone] if any additional questions.
[2024-11-30] VITALS (15 sets, daily range): BP systolic 103–146; BP diastolic 38–92; PULSE 55–87; RESP 12–16; TEMP 36.1–36.7; O2SAT 89–100; BMI 35.0
--- OUTSIDE RECORDS SUMMARY | 2024-11-30 01:01 | XMS_ITS | Clinical Summary ---
Author Organization [facility] Address [facility] [place] [address] Care Team Providers Care Dead Mail Checker Name Role Phone Sushma Ellington MD Primary Care Provider Allergies No known active allergies Medications omeprazole 40 MG capsule Take 1 capsule (40 mg total) by mouth daily. Active Cholecalciferol (VITAMIN D) 2000 units Tab Activ e levothyroxine 50 MCG tablet Take 1 tablet (50 mcg total) by mouth every morning. Active vitamin B-1 100 MG tablet Take 1 tablet (100 mg total) by mouth daily. Active Ascorbic Acid (VITAMIN C) 100 MG tablet Take 1 tablet (100 mg total) by mouth daily. Active zinc gluconate 50 MG Tab Take 1 tablet (50 mg total) by mouth daily. Active dextromethorpha n-guaiFENesin ER (MUCINEX DM) 30-600 MG TABLET SR 12 HR 12 hr tabletIndicatio ns:Viral URI with cough Take 1 tablet by mouth every 12 (twelve) hours as needed. 28 tablet 08/13/2022 Active methylPREDNISol one, HECTOR, (MEDROL DOSEPAK) 4 MG tabletIndicatio ns:Viral URI with cough,Fluid level behind tympanic membrane of both ears Take 1 tablet (4 mg total) by mouth daily. 6 TABLETS ON DAY ONE, 5 TABLETS DAY TWO, 4 TABLETS DAY THREE, 3 TABLETS DAY FOUR, 2 TABLETS DAY FIVE, AND 1 TABLET DAY SIX 1 each 08/13/2022 Active Social History Tobacco Use Types Packs/Day Years Used Date Smoking Tobacco: Never Smokeless Tobacco: Current Chew Tobacco Cessation:Ready to Q uit: Not Asked; Counseling Given: Not Answered Comments:6 cans a week for 45 years Sex and Gender Information Value Date Recorded Sex Assigned at Not on file Legal Sex Male 7:53 AM CDT Gender Identity Not on file Sexual Orientation Not on file Last Filed Vital Signs Vital Sign Reading Time Taken Comments Blood Pressure 114/70 08/13/2022 6:01 PM CDT Pulse 76 08/13/2022 6:01 PM CDT Temperature 36.6 C (97.8 F) 08/13/2022 6:01 PM CDT Respiratory Rate 16 08/13/2022 6:01 PM CDT Oxygen Saturation 98% 08/13/2022 6:01 PM CDT Inhaled Oxygen Concentration - - Weight 126.8 kg (279 lb 9.6 oz) 08/13/2022 6:01 PM CDT Height 182.9 cm (6') 08/13/2022 6:01 PM CDT Body Mass Index 37.92 08/13/2022 6:01 PM CDT Plan of Treatment Health Maintenance Due Date Last Done Comments Colorectal Cancer Screening Colonoscopy (10 Years) 1960 Annual Physical 1964 Hepatitis C 1979 Pneumococcal Vaccine: 50+ Years (1 of 1 - PCV) 2011 COVID-19 Vaccine ( - season) 2024 DTaP, Tdap and Td Vaccines (10 - Td or Tdap) 01/01/2026 01/02/2016, 03/16/2011, 03/16/2011, Additional history exists RSV Immunization or 60+ Years (1 - 1-dose 75+ series) 2036 Zoster Vaccines Completed 02/27/2022, 12/05/2021 Meningococcal B Vaccine Aged Out No l onger eligible based on patient's age to complete this topic Meningococcal Vaccine Aged Out No ambika cindy eligible based on patient's age to complete this topic RSV Immunizations Under 20 Months Aged Out No longer eligible based on patient's age to complete this topic Insurance Care Teams Dead Mail Checker Relationship Specialty Start Date End Date Sushma Ellington MD [address] [place] [address] PCP - General FAMILY PRACTICE 08/05/18
--- OUTSIDE RECORDS SUMMARY | 2024-11-30 01:01 | XMS_ITS | Clinical Summary ---
Author Organization [employer] [facility] Address [address] [place] [address] Phone Care Team Providers Care Motor Scooter Mechanic Name Role Phone Sushma Ellington MD Primary [...] (1 of 2) 2011 INFLUENZA VACCINE (#1) 2024 COLORECTAL SCREENING 01/31/2026 01/31/2021, 01/31/2021, 01/31/2021, Additional [...] Tomas MD - 01/31/2021 9:11 AM CDT [facility] Endoscopy Patient Name: Donnie Gutierrez Procedure [...] of Addenda: [address]; [place] [address] Gunnar Tomas MD GI PROCEDURE ORDERABLES Final Re sult from Last 3 Months or Most Recently Relevant to Health Maintenance Advance Directives For more information, please contact: [phone] * Full Code (Latest Code Status on File) Date Activated Date Inactivated Comments 01/31/2021 8:06 AM 01/31/2021 12:35 PM * Full Code Date Activated Date Inactivated Comments 08/25/2015 8:59 AM 08/25/2015 2:49 PM Care Teams Motor Scooter Mechanic Relationship Specialty Start Date End Date Sushma Ellington MD PCP - General Family Practice 08/16/15
--- OUTSIDE RECORDS SUMMARY | 2024-11-30 01:01 | XMS_ITS | Clinical Summary ---
Author Organization [facility] Address [address] [place] [address] Care Team Providers Care Cant Gang Sawyer Name Role Phone Sushma Ellington MD Primary Care Provider [phone] Source Comments [facility],non-owned Affiliates and Associated Physician Practices is amultiple site organization consisting of ambulatory clinics and hospital sitesin [place], [place], [place] and [place]. This disclosure is being madepursuant to the Care Everywhere program and may not contain all information available regarding this patient. 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
--- OUTSIDE RECORDS SUMMARY | 2024-11-30 01:01 | XMS_ITS | Patient Health Record ---
Author Organization [facility] Address [address] [place] [address] Care Team Providers Care Facial Operator Name Role Phone Dr. Sushma Ellington Primary Care Provider [phone] Wilner Frias Unavailable [phone] Migration, Provider Unavailable Unavailable Allergies No Known Allergies Results Component Value Reference Range Notes Comprehensive Metabolic Pane l Reviewed date:01/09/2024 12:00:00 [...] Performing Lab: Notes/Report: PSA Total 4.44 ng/mL Vitamin D 25 Hydroxy Reviewed date:12/03/2023 12:00:00 AM Interpretation: Performing Lab: Notes/Report: Vitamin D 25 OH 37 ng/mL Vitamin B12 Reviewed date:12/03/2023 12:00:00 AM Interpretation: Performing Lab: Notes/Report: Vitamin B12 Lvl 580 pg/mL Thyroid Stimulating Hormone Reviewed date:12/03/2023 12:00:00 AM Interpretation: Performing Lab: Notes/Report: TSH 3.09 mcIU/mL T4 Free Reviewed date:12/03/2023 12:00:00 AM Interpretation: Performing Lab: Notes/Report: T4 Free 0.76 ng/dL Lipid Panel {Chol, Trig, HDL , LDL} Reviewed date:12/03/2023 12:00:00 AM Interpretation: Performing Lab: Notes/Report: Chol/HDL 5 Cholesterol Total 130 mg/dL Coronary Risk 22 % HDL 28 mg/dL LDL 86 mg/dL NON HDL CHOLESTEROL 102 mg/dL Triglycerides 78 mg/dL Hemoglobin A1c {Glycosylated } Reviewed date:12/03/2023 12:00:00 AM Interpretation: Performing Lab: Notes/Report: eAvg Glucose 128 mg/dL Hemoglobin A1c 6.1 % CBC w/ Diff Reviewed date:12/03/2023 12:00:00 AM Interpretation: Performing Lab: Notes/Report: Baso Absolute 0.1 x10*3/mcL Basophil Auto 0.9 % Eos Absolute 0.3 x10*3/mcL Eosinophil Auto 4.8 % Hct 45.1 % Hgb 15.0 g/dL Lymph Absolute 1.2 x10*3/mcL Lymph Auto 18.9 % MCH 30.2 pg MCHC 33.3 g/dL MCV 90.8 fL Walker Absolute 0.5 x10*3/mcL Walker Auto 7.9 % MPV 8.7 fL Neutro [...] Total 6.5 g/dL Sodium Lvl 140 mmol/L Chest X-ray PA and lateral Reviewed date:10/07/2024 02:27:34 PM Interpretation: Performing Lab: Notes/Report: Reason For Referral Reason elevated PSA Diagnosis 1 Elevated prostate sp ecific antigen [PSA] (R97.20) Referral Organization [facility] Referring Provider First Name Dr. Ordaz Referring Provider Last Name [place] Referring Provider [facility] taran Referred Provider Marbin Dee Referred Provider Specialty Urology General Notes Sofya Templeton 06/03 03:03:14 PM CLINICAL BIOCHEMIST >this was ordered in - they made a chart, but stated no clinical documents were uploaded. Referral team can you refax labs and OV for this. Was originally sent in Mar 2024? The person I spoke to in the office stated to fax to [phone] and they will call pt now to schedule an appt., Yamini Gould 06/03/2024 04:47:10 PM CLINICAL BIOCHEMIST >Faxed referral with OV and labs to Dr. Dee Clinical Notes Sofya Templeton 06/24 02:56:41 PM CLINICAL BIOCHEMIST >consult note in chart. Referral Priority Stat Referral Appointment Date 06/07/2024 Medications Medication SIG (Take, Route, Frequency, Duration) Notes Start Date End Date Status Vitamin C oral; Duration: 0 *Pick strength-form from [facility] for eRX* 12/05/2021 Active Zinc oral; Duration: 0 *Pick strength-form from [facility] for eRX* 12/05/2021 Active Vitamin B Complex oral; Duration: 0 *Pick strength-form from [facility] for eRX* 12/05/2021 Active Omeprazole 20 MG Capsule Delayed Release 1 Oral every day; Duration: 90 12/08/2023 12/01/2024 Active predniSONE 20 MG Tablet 2 tablets Orally Once a day; Duration: 5 days take with food 05/21/2024 Active Levothyroxine Sodium 50 MCG Tablet 1 Oral every day; Duration: 90 12/08/2023 12/01/2024 Active Vitamin D3 oral; Duration: 0 *Pick strength-form from [facility] for eRX* 12/05/2021 Active Immunizations Vaccine Route Administration Date Status Comme nts Zoster IM Intramuscular 12/05/2021 Administered ,[facility] [place] : New immunization record ,immstatus : Complete Zoster IM Intramuscular 02/27/2022 Administered ,[facility] [place] : New immunization record ,immstatus : [...] Problem Status W/U Status Risk Notes Problem Pain in limb (86606617) Pain in soft tissues of limb (729.5) 11/06/19 16 Active confirmed Problem Acute atopic conjunctivitis (77645152) Acute atopic conjunctivitis, unspecified eye (H10.10) 12/08/19 24 Active confirmed Problem Screening for malignant neoplasm of prostate (531458670) Encounter for screening for malignant neoplasm of prostate (Z12.5) 12/04/19 22 Active confirmed Problem Tobacco user (144490611) Nondependent tobacco use disorder (305.1) 11/06/19 16 Problem resolved confirmed Problem Spasm (50456198) Other muscle spasm (M62.838) 11/06/19 16 Problem resolved confirmed Problem Vitamin B deficiency (77568430) Deficiency of other specified B group vitamins (E53.8) 12/05/19 23 Active confirmed Problem Hypothyroidism (29940249) Hypothyroidism, unspecified (E03.9) 12/04/19 22 Active confirmed Problem Actinic keratosis (441190) Actinic keratosis (702.0) 06/12/19 17 Active confirmed Problem History of thromboembolism of vein (508203935) Personal history of other venous thrombosis and embolism (Z86.718) 11/06/19 16 Problem resolved confirmed Problem Spasm (30893217) Cramp and spasm (R25.2) 09/26/19 19 Problem resolved confirmed Problem Pain in left leg (858311511) Pain in left leg (M79.605) 11/06/19 16 Problem resolved confirmed Problem Arthralgia of the pelvic region and thigh (259306932) Pain in right hip (M25.551) 10/24/19 17 Problem resolved confirmed Problem Allergic rhinitis (92629638) Allergic rhinitis, unspecified (J30.9) 09/26/19 19 Problem resolved confirmed Problem Screening for malignant neoplasm of prostate (743421233) Special screening for malignant neoplasm of prostate (V76.44) 09/26/19 19 Problem resolved confirmed Problem Family history: Cardiovascular disease (situation) (564066822) Family history of other cardiovascular diseases (V17.4) 11/06/19 16 Problem resolved confirmed Problem Vaccination needed (414543369681349) Need for prophylactic vaccination and inoculation, Other viral diseases (V04.89) 09/26/19 19 Problem resolved confirmed Problem Spasm (86018627) Spasm of muscle (728.85) 11/06/19 16 Problem resolved confirmed Problem Cramp in limb (370206118) Cramp of limb (729.82) 09/26/19 19 Problem resolved confirmed Problem Acute bronchitis (99415966) Acute bronchitis (466.0) 11/06/19 16 Problem resolved confirmed Problem Allergic rhinitis (03315028) Allergic rhinitis, cause unspecified (477.9) 09/26/19 19 Problem resolved confirmed Problem Psychosexual dysfunction associated with inhibited sexual excitement (441694833324969) 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) 06/12/19 17 Problem resolved confirmed Problem Acquired hypothyroidism (647291942) Other specified acquired hypothyroidism (244.8) 09/26/19 19 Problem resolved confirmed Problem Enlarged prostate (792808480) Enlarged prostate without lower urinary tract symptoms (N40.0) 05/22/20 22 Active confirmed Problem Elevated PSA (551166059) Elevated prostate specific antigen [PSA] (R97.20) 01/09/20 24 Active confirmed Problem Prediabetes (048350780) Prediabetes (R73.03) 12/07/19 23 Active confirmed Problem Vaccination given (667815137) Encounter for immunization (Z23) 12/06/19 22 Active confirmed Problem Adult health examination (359289727) Encounter for general adult medical examination without abnormal findings (Z00.00) 12/06/19 22 Active confirmed Problem Hyperglycemia (44744433) Hyperglycemia, unspecified (R73.9) 12/06/19 22 Active confirmed Problem Pain in limb (51616440) Pain in right toe(s) (M79.674) 06/09/19 24 Active confirmed Problem Enthesopathy of knee (72351979) Other bursitis of knee, unspecified knee (M70.50) 12/18/19 24 Active confirmed Problem Ganglion cyst (284589968) Ganglion, unspecified site (M67.40) 06/09/19 24 Active confirmed Problem Knee joint effusion (491161242) Effusion, right knee (M25.461) 12/26/19 24 Active confirmed Problem Hypertrophic condition of skin (29850129) Other hypertrophic disorders of the skin (L91.8) 12/06/19 22 Active confirmed Problem Actinic keratosis (283135) Actinic keratosis (L57.0) 06/09/19 24 Active confirmed Problem Umbilical hernia (174321094) Umbilical hernia without obstruction or gangrene (K42.9) 12/08/19 24 Active confirmed Problem Vitamin D deficiency (58118529) Vitamin D deficiency, unspecified (E55.9) 12/05/19 23 Active confirmed Problem Tinea unguium (092026468) Tinea unguium (B35.1) 12/08/19 24 Active confirmed Problem General examination of patient (956752136) Routine general medical examination at health care facility (V70.0) 06/12/19 17 Active confirmed Problem Viral screening (095771292) Special screening examination for other specified viral diseases (V73.89) 06/12/19 17 Problem resolved confirmed Problem Viral screening (411710426) Encounter for screening for other viral diseases (Z11.59) 06/12/19 17 Problem resolved confirmed Problem Fatigue (83872792) Other fatigue (R53.83) 09/26/19 19 Problem resolved confirmed Problem Atopic dermatitis (68248614) Atopic dermatitis, unspecified (L20.9) 06/12/19 17 Problem resolved confirmed Problem Male erectile disorder (774125526) Male erectile disorder (F52.21) 06/12/19 17 Problem resolved confirmed Problem Immunization not carried out because of patient refusal (Z28.21) 12/06/19 22 Active confirmed Problem Seborrheic keratosis (91539697) Other seborrheic keratosis (L82.1) 06/09/19 24 Active confirmed Problem Gastro-esophageal reflux disease without esophagitis (516537558) Gastro-esophageal reflux disease without esophagitis (K21.9) 12/04/19 22 Active confirmed Problem Lipoma (05994525) Benign lipomat ous neoplasm, 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) 12/06/19 22 Active confirmed Problem Arthralgia of the pelvic region and thigh (539736408) Pain in joint, pelvic region and thigh (719.45) 10/24/19 17 Active confirmed Problem Generalized atopic dermatitis (147210259) Other atopic dermatitis and related conditions (691.8) 06/12/19 17 Active confirmed Problem Esophageal reflux (282924666) Esophageal reflux (530.81) 11/06/19 16 Active confirmed Problem Blood chemistry abnormal (763265787) Other specified abnormal findings of blood chemistry (R79.89) 12/07/19 22 Problem resolved confirmed Problem Acute bronchitis (71153597) Acute bronchitis, unspecified (J20.9) 11/06/19 16 Problem resolved confirmed Problem Acute pansinusitis (7653653) Acute pansinusitis, unspecified (J01.40) 11/06/19 16 Problem resolved confirmed Problem Malaise and fatigue (903012375) Other malaise and fatigue (780.79) 09/26/19 19 Problem resolved confirmed Problem Acute sinusitis (disorder) (47039104) Other acute sinusitis (461.8) 11/06/19 16 Problem resolved confirmed Problem Tobacco use (276496976) Tobacco use (Z72.0) 12/02/19 24 Active confirmed Vital Signs Heart Rate 106 /min 05/21/2024 Temperature 96.9 degrees Fahrenheit 05/21/2024 Respiratory Rate 24 /min 05/17/2024 Height-cm 182.88 cm 05/21/2024 Blood pressure diastolic 88 mm Hg 05/21/2024 Oximetry 96 % 05/21/2024 Weight-kg 126.35 kg 01/08/2024 Height 72.00 in 05/21/2024 Blood pressure systolic 130 mm Hg 05/21/2024 Weight 278.55 lbs 01/08/2024 Encounters Encounter Location Date Provider Diagnosis [address] [address] 12/02/2023 Provider Migration Tobacco use Z72.0 ; Vitamin D deficiency, unspecified E55.9 ; Encounter for general adult medical examination without abnormal findings Z00.00 ; Hyperglycemia, unspecified R73.9 ; Prediabetes R73.03 ; Deficiency of other specified B group vitamins E53.8 and Hypothyroidism, unspecified E03.[address] [address] 12/08/2023 Dr. Sushma Ellington Vitamin D deficiency, [...] Hypothyroidism, unspecified E03.9 and Tinea unguium B35.[address] [address] 12/18/2023 Wilner Rodriguez Other bursitis of knee, unspecified knee M70.[address] [address] 12/26/2023 Wilner Rodriguez Effusion, right knee M25.461 and Other bursitis of knee, unspecified knee M70.[address] [address] 01/08/2024 Wilner Rodriguez Effusion, right knee M25.461 and Other bursitis of knee, unspecified knee M70.[address] [address] 01/09/2024 Provider Migration Other bursitis of knee, unspecified knee M70.50 ; Elevated prostate specific antigen [PSA] R97.20 and Tobacco use Z72.[address] [address] 01/13/2024 Provider Migration Elevated prostate specific antigen [PSA] R97.20 and Tobacco use Z72.[address] [address] 04/09/2024 Provider Migration Tinea unguium B35.1 ; Tobacco use Z72.0 and Elevated prostate specific antigen [PSA] R97.[address] [address] 04/13/2024 Provider Migration Elevated prostate specific antigen [PSA] R97.20 and Tobacco use Z72.[address] [address] 05/17/2024 Dr. Sushma Ellington Acute cough R05.1 ; Acute non-recurrent sinusitis, unspecified location J01.90 ; Acute pneumonia J18.9 and Seborrheic keratosis L82.[address] [address] 05/21/2024 Dr. Sushma Ellington Acute pneumonia J18.9 and Acute cough R05.[address] [address] 04/24/2024 Provider Migration [address] [address] 04/25/2024 Provider Migration Assessments Encounter Date Diagnosis (ICD Code) Assessment Notes Treatment Notes Treatment Clinical Notes Section Notes 12/02/2023 Hypothyroidism, unspecified (ICD-10 - E03.9) 12/02/2023 Deficiency of other specified B group vitamins (ICD-10 - E53.8) 12/02/2023 Vitamin D deficiency, unspecified (ICD-10 - E55.9) 12/02/2023 Hyperglycemia, unspecified (ICD-10 - R73.9) 12/02/2023 Encounter for general adult medical examination without abnormal findings (ICD-10 - Z00.00) 12/02/2023 Tobacco use (ICD-10 - Z72.0) 12/02/2023 Prediabetes (ICD-10 - R73.03) 12/08/2023 Tinea unguium (ICD-10 - B35.1) 12/08/2023 [...] - Z12.5) 12/08/2023 Prediabetes (ICD-10 - R73.03) 12/18/2023 Other bursitis of knee, unspecified knee (ICD-10 - M70.50) 12/26/2023 Effusion, right knee (ICD-10 - M25.461) 12/26/2023 Other bursitis of knee, unspecified knee (ICD-10 - M70.50) 01/08/2024 Effusion, right knee (ICD-10 - M25.461) 01/08/2024 Other bursitis of knee, unspecified knee (ICD-10 - M70.50) 01/09/2024 Other bursitis of knee, unspecified knee (ICD-10 - M70.50) 01/09/2024 Tobacco use (ICD-10 - Z72.0) 01/09/2024 Elevated prostate specific antigen [PSA] (ICD-10 - R97.20) 01/13/2024 Tobacco use (ICD-10 - Z72.0) 01/13/2024 Elevated prostate specific antigen [PSA] (ICD-10 - R97.20) 04/09/2024 Tinea unguium (ICD-10 - B35.1) 04/09/2024 Tobacco use (ICD-10 - Z72.0) 04/09/2024 Elevated prostate specific antigen [PSA] (ICD-10 - R97.20) 04/13/2024 Tobacco use (ICD-10 - Z72.0) 04/13/2024 Elevated prostate specific antigen [PSA] (ICD-10 - R97.20) 05/17/2024 Acute cough (ICD-10 - R05.1) 05/17/2024 Acute non-recurrent sinusitis, unspecified location (ICD-10 - J01.90) 05/21/2024 Acute cough (ICD-10 - R05.1) 05/21/2024 Acute pneumonia (ICD-10 - J18.9) CXR doesn't show infiltrate but does show some hazy appearance. continue moxifloxacin start codeine for the severe cough start prednisone consider adding symbicort call if not improving next week 05/17/2024 Acute pneumonia (ICD-10 - J18.9) Recommend [...] Provider Name:Dr. Sushma ibarra, 01/20/2025 11:00:00 AM, [address] [place], [address], [phone] Insurance Providers Payer Name Payer Address Payer Phone Subscriber Number Group Number Insured Name Patient Relationship to Insured Coverage Start Date Coverage End Date [facility] [address] [address] [place] [address] [id number] Donnie Gutierrez Self - patient is the insured 3 Medications Administered Medication Instructions Date of Administration Dosage Notes dexAMETHasone 05/17/2024 6 mg Medical (General) History Surgical History Surgery Date(Month/Year) Arthroscopy ,notes : knee Colonoscopy, flexible, proxi mal to splenic flexure; diagnostic, with or without collection of specim 7
--- OUTSIDE RECORDS SUMMARY | 2024-11-30 01:01 | XMS_ITS ---
Author Organization [facility] Address [address] [place] [address] Care Team Providers Care Sane Rn Name Role Phone Dr. Sushma Ellington Primary Care Provider [phone] Migration, Provider Unavailable Unavailable Allergies No Known [...] tobacco Encounters Encounter Location Date Provider Diagnosis [facility] [address] [address] 04/25/2024 Provider Migration Plan Of Treatment Next Appt Details Provider Name:Dr. Ordaz [facility], 01/20/2025 11:00:00 AM, [address] [place] [address] [email or web address] [facility], [place], [address], [phone] Progress Notes * Donnie GOODEDOB:1960 (64 yo M)Acc No.[id number]:04/25/2024 Patient: Donnie MEADE :1960 A ge:63 Y S ex:Male Address:[address] [place] [address], [phone] Subjective: * Chief Complaints: * E MR-Kofi [...] , Notes to Pharmacist: *[facility]*Zinc oral , Notes to Pharmacist: [facility]*Vitamin B Complex oral , Notes to Pharmacist: *[facility]*Omeprazole 20 MG Capsule Delayed Release 1 Oral every day , stop date 12/01/2024Levothyroxine Sodium 50 MCG Tablet 1 Oral every day , stop date 12/01/2024Vitamin C oral , Notes to Pharmacist: *[facility]*Taking Vitamin D3 oral , Notes to Pharmacist: *[facility]*Taking Zinc oral , Notes to Pharmacist: *Pick strength-form from [facility] for eRX*Taking Vitamin B Complex oral , Notes to Pharmacist: *[facility]*Taking Omeprazole 20 MG Capsule Delayed Release 1 Oral every day , stop date 12/01/2024Taking Levothyroxine Sodium 50 MCG Tablet 1 Oral every day , stop date 12/01/2024Taking Vitamin C oral , Notes to Pharmacist: *[facility]* * Allergies: N .K.D.A. * * Date:
--- OUTSIDE RECORDS SUMMARY | 2024-11-30 01:01 | XMS_ITS | Clinical Summary ---
Author Organization [facility] Address [address] [place] [address] Phone Care Team Providers Care Trucking Supervisor Name Role Phone Sushma Ellington MD Primary [...] (1 - 2023- season) 2024 Influenza Immunization (#1) 2025 Respiratory Syncytial Virus (RSV) Immunization (Adult) [...] to complete this topic Insurance Care Teams Trucking Supervisor Relationship Specialty Start Date End Date Sushma Ellington MD PCP - General Family Medicine 01/29/19
[2024-11-30] MEDS: LACTATED RINGERS 1,000 ML 30 ML IV CONT ×3 (07:00→13:24)
--- NOTE | 2024-11-30 07:06 | WPDANESEPPF ---
Anes - Initial Pre Proc Eval Procedure: Operation Date: 11/30/24 08:30 Proposed Procedures p Robotic Nerve Sparing Prostatectomy, Possible Bilateral Pelvic Lymph Node Dissection - Marbin Dee MD Date/Time: 11/30/24 07:06 Surgeon: Marbin Dee MD Pre Op Diagnosis: prostate CA Patient Data Age: 64 Gender: M Height: 1.85 m Weight: 123.6 kg Last Vital Signs Temp 36.8 C 11/22/24 12:00 Pulse 67 11/22/24 12:00 Resp 16 11/22/24 12:00 BP 138/81 11/22/24 12:00 Pulse Ox 100 11/22/24 12:00 O2 Del Method Room Air 11/22/24 12:00 Allergies Allergy/AdvReac Type Severity Reaction Status Date / Time No Known Allergies Allergy Verified 11/22/24 11:55 Home Medications ?Medication ?Instructions ?Recorded ?Confirmed ?Type ascorbic acid (vitamin C) 500 mg 500 mg PO DAILY 11/22/24 11/22/24 History tablet (C-500) cholecalciferol (vitamin D3) 50 50 mcg PO DAILY 11/22/24 11/22/24 History mcg (2,000 unit) capsule (D3-2000) levothyroxine 50 mcg tablet 50 mcg PO DAILY 11/22/24 11/22/24 History (Synthroid) mecobalamin (vitamin B12) 1,000 1,000 mcg PO DAILY 11/22/24 11/22/24 History mcg lozenges omeprazole 20 mg capsule,delayed 20 mg PO DAILY 11/22/24 11/22/24 History release zinc 50 mg tablet 50 mg PO DAILY 11/22/24 11/22/24 History Patient hx anesthesia problems: none Family hx anesthesia problems: none Results Review: All pre-operative results and documents have been reviewed as part of the pre-operative evaluation. [facility] Past Medical History Medical History (Updated 11/30/24 @ 07:07 by Donnie Paris MD) Obesity Snoring Prostate CA Surgical History Surgical History (Updated 11/30/24 @ 07:07 by Donnie Paris MD) History of total knee arthroplasty Social History Social History Tobacco type: smokeless tobacco Smokeless tobacco user: chewing tobacco Alcohol intake: current Alcohol use details: 2-3 week Substance use: never Living arrangements: with family Additional living arrangements comments: Spiritual care concerns: No Anes - Eval Final PreProcedure Day of Procedure 11/30/24 07:06 Patient weight: obese Heart: regular rate and rhythm Lungs: clear to auscultation Airway: Mallampati scale class II Neurological: alert and oriented Last oral intake: >/= 8 hours ASA classification: III Emergent: no Anesthetic plan: proceed Anesthesia type and monitoring: general ETT and standard monitoring Results Review: All pre-operative results and documents have been reviewed as part of the pre-operative evaluation. Informed Consent: The patient's anesthetic plan and its attendant risks and benefits were discussed with the patient/family/POA. Questions were solicited and answers provided to the satisfaction of the patient/family/POA.
--- NOTE | 2024-11-30 07:35 | WPDHPUPDATE1 ---
History and Physical Update Update Date/Time: 11/30/24 07:35 History and Physical has been reviewed, including an updated exam of the patient. There are NO changes in the patient's condition. Risks, benefits, and alternatives have been discussed and questions answered. Patient agrees to proceed with procedure. Proceed with robotic assist nerve sparing prostatectomy with possible plnd
[2024-11-30] MEDS: ceFAZolin 3 GM/D5W 100 ML 100 ML IVPB (08:27)
[2024-11-30] MEDS: BUPivacaine HCL 0.5% 10 ML AMP 30 ML INFILTRATE (08:59)
--- NOTE | 2024-11-30 12:18 | W.PM.PROC2 ---
Procedure Note - Detailed Date of Procedure 11/30/24 Pre-op Diagnosis prostate CA Post-op Diagnosis Same Procedure Performed Robotic assisted nerve-sparing prostatectomy with left pelvic lymph node dissection Surgeon Marbin Dee MD Anesthesia General Description of Procedure Patient is taken to the operative suite correctly identified. Once anesthesia was obtained he was placed in low-lying dorsal lithotomy position and prepped and draped usual sterile fashion. Olvera catheter was inserted. Supraumbilical incision was made carried down to the rectus fascia. Veress needle was placed. Abdomen insufflated to 15 mmHg pressure. Camera port placed under direct vision. Other working ports were placed in their appropriate locations. Patient was placed in steep Trendelenburg position and the robot was docked. Attention was then given to the consult. Posterior approach was taken after the sigmoid adhesions were taken down. Seminal vesicles were dissected in their entirety. Vas is were transected. Plane between the prostate and rectum was developed. Bladder was then dropped in standard fashion. Space of Retzius was developed bilaterally. Puboprostatic were taken down. Dorsal venous complex was isolated using a 0 Vicryl and secured to the pubic bone. Bladder neck sparing procedure was then performed. Posterior bladder neck was transected.. The tissue plane was then dissected out with the previously dissected seminal vesicles were placed. Pedicles were clipped. Bilateral nerve-sparing was performed. Dorsal venous complex was transected as was the urethra. Specimen was placed in Endo-Catch bag. Left pelvic lymph node dissection was then performed with the boundaries being the obturator nerve, Justin's ligament, bifurcation of the vessels. A and obturator nerve. This was also placed in the Endo-Catch bag. Surgicel was placed in the obturator fossa and over the nerve bundles. A Miah stitch was then placed. Anastomosis was performed using V lock suture in a running fashion. There was good approximation of mucosa. Olvera catheter was inserted. 10 cc were placed in the balloon. The catheter irrigated well without any evidence of extravasation. LIZBET was placed through the 4th arm port site and secured. Robot was undocked. All lap count needle count sponge counts were correct. Rectus fascia was closed using 0 Vicryl running fashion. Subcuticular stitches were then placed. Incisions were anesthetized with 1% lidocaine. Patient was taken recovery stable condition. This completes dictation. Please send a copy of op note to my office Estimated Blood Loss 100 Drains Yes Packing No Pathology Yes Complications No immediate complications Condition Stable Disposition PACU
--- NOTE | 2024-11-30 12:23 | S_PTH ---
PATIENT: Donnie Gutierrez LOC: [facility] U#:[id number] AGE/SX: 64/M ROOM: RE11/30/[address]: Marbin Dee, : 1960 BED: DIS: 12/01/2024 SPEC #: [id number] RECD: 11/30/24 12:46 STATUS: BEKAH RECandice #: [id number] MELO: 11/30/24 12:[address]: Leila,Marbin Jefferson DEPT: [facility] Surgical RECD BY: Golden Low ENTERED: 11/30/24 12:46 SP TYPE: Surgical OTHR DR: Sushma Ellington MD Tissues: A - Prostate Procedures: Hematoxylin and Eosin Stain Gross and Microscopic Level 6
[2024-11-30] MEDS: fentaNYL CITRATE INJ (*CRX) 100 MCG/2 ML VIAL 25 MCG IV PUSH ×2 (13:33→13:45)
--- NOTE | 2024-11-30 14:40 | ADMGEN ---
This patient, Donnie Gutierrez, was admitted to 3 [facility] Surg Room 315-02. Patient/family oriented to hospital policies and general routines including ID bracelet, bed and alarms, visiting hours, pain management, procedures, bathroom and other care routines, personal items, smoking policy, room service/diet, and visiting hours. Information on how to activate the Rapid Response Team has been discussed. Patient/Family are encouraged to report perceived risks to care and to ask questions if they do not understand what they are told or what they should do.
[2024-11-30] MEDS: KETOROLAC 15 MG/ML VIAL (*BKC) IV PUSH (17:16)
[2024-11-30] MEDS: LACTATED RINGERS 1,000 ML 125 ML IV CONT (17:17)
[2024-11-30] MEDS: DOCUSATE SODIUM 100 MG CAPSULE PO (17:18)
[2024-12-01 00:11] VITALS: BP 118/73; PULSE 81; RESP 18; TEMP 36.8; O2SAT 98
[2024-12-01] MEDS: LACTATED RINGERS 1,000 ML 125 ML IV CONT (01:17)
[2024-12-01 04:15] VITALS: BP 122/85; PULSE 77; RESP 18; TEMP 36.3; O2SAT 95
[2024-12-01 05:51] LABS: Hematocrit 41.5 % (42.0-52.0); Hemoglobin 13.7 g/dL (14.0-18.0)
[2024-12-01 06:07] LABS: Anion Gap 9 mmol/L (4-12); Blood Urea Nitrogen 10 mg/dL (9-20); Calcium 8.4 mg/dL (8.4-10.2); Carbon Dioxide 24 mmol/L (22-30); Chloride 107 mmol/L (98-107); Estimated CRCL calculation 108 ml/min; Estimated Glomerular Filt Rate > 60; Glucose 135 mg/dL (65-110); Potassium 4.0 mmol/L (3.4-5.0); Sodium 140 mmol/L (137-145)
[2024-12-01] MEDS: LEVOTHYROXINE SODIUM 50 MCG TABLET PO (06:12)
[2024-12-01 08:00] VITALS: O2SAT 94
[2024-12-01 08:15] VITALS: BP 134/74; PULSE 72; RESP 16; TEMP 36.2; O2SAT 95
[2024-12-01] MEDS: DOCUSATE SODIUM 100 MG CAPSULE PO (09:14)
[2024-12-01 10:25] VITALS: O2SAT 94
[2024-12-01 12:15] VITALS: BP 131/78; PULSE 70; RESP 16; TEMP 36.3; O2SAT 96
--- NOTE | 2024-12-01 13:11 | WPDANESPN ---
Anes - Prog Note Post-Op Date/Time: 12/01/24 13:11 Cardiovascular status: normal Respiratory status: normal Airway patency: baseline Mental status: baseline Post-Op hydration status: normal Vital Signs: Last Vital Signs Temp 36.3 C L 12/01/24 12:15 Pulse 70 12/01/24 12:15 Resp 16 12/01/24 12:15 BP 131/78 12/01/24 12:15 Pulse Ox 96 12/01/24 12:15 O2 Del Method Room Air 12/01/24 10:25 O2 Flow Rate 2 11/30/24 14:25 Pain Score (VAS): 2 I/O: Intake & Output 11/30/24 12/01/24 12/01/24 23:59 07:59 15:59 Intake Total 730 1900 240 Output Total 1340 2815 Balance -610 -915 240 Laboratory Tests 12/01/24 05:32 12/01/24 05:32 12/01/24 05:32 Hgb 13.7 L Hct 41.5 L Sodium 140 Potassium 4.0 Chloride 107 Carbon Dioxide 24 Anion Gap 9 BUN 10 D Creatinine 0.83 Estim Creat Clear Calc 108 Estimated GFR > 60 Glucose 135 H Calcium 8.4 Post-procedural complaints: none Patient Feedback: Patient satisfied with anesthetic care.
--- NOTE | 2024-12-01 13:24 | P.DS_ITS ---
DS: Admitting Diagnosis Discharge Date 12/01/2024 Admitting Diagnosis prostate cancer DS: Discharge Diagnosis Discharge Diagnosis (1) Prostate CA: Code(s): C61 - Malignant neoplasm of prostate Status: Acute Plan Patient is POD 1 Procedure Performed Robotic assisted nerve-sparing prostatectomy with left pelvic lymph node dissection -He is doing well and ready to go home. LIZBET pulled and only had minimal output. Urine is looking pink tinged to clear yellow. -Discharge with [facility] -Follow up in office in one week DS: Summary Hospital Course Hospital Course: Patient is POD 1 Procedure Performed Robotic assisted nerve-sparing prostatectomy with left pelvic lymph node dissection. No complications. patient ready for discharge on POD 1 Status at Discharge Functional status at discharge: independent ambulation Overall status at discharge: patient is back to baseline Time Spent with Patient Time attestation: Total time spent providing and/or coordinating discharge services: Exam Narrative: abdominal incisions are clean, dry, and ELIDA. LIZBET site has 4x4 with tegaderm. Const: General: comfortable and no acute distress Eyes: General: appearance normal, both eyes and all related structures Neck: Neck: supple Resp: Effort & Inspection: normal respiratory effort Cardio: Rate: regular rate GI: GI Palp: Yes Soft to palpation Urinary Catheter: Urinary Catheter: patent and draining and urine clear Skin: General skin exam: normal color Extrem: General: normal to inspection Psych: Mental Status: mental status grossly normal DS: Data Data Completed and Pending Completed studies during hospitalization: Pending at discharge 11/30/24 12:23 Surgical [PTH] Routine Labs on day of discharge: Labs from last 24 hours 12/01/24 05:32 Hgb 13.7 L Hct 41.5 L Sodium 140 Potassium 4.0 Chloride 107 Carbon Dioxide 24 Anion Gap 9 BUN 10 D Creatinine 0.83 Estim Creat Clear Calc 108 Estimated GFR > 60 Glucose 135 H Calcium 8.4 Discharge Plan Discharge Patient Disposition: Home Patient Language: Northern Irish Stand Alone Forms: General Discharge Instructions Discharge Medications: New hydrocodone-acetaminophen 5-325 mg Tablet 1 tablet PO Q6H PRN (Reason: Pain Rated 1-3) 5 Days Qty: 20 0RF hyoscyamine sulfate [Anaspaz] 0.125 mg Tablet,Disintegrating 0.125 mg sublingual Q4H PRN (Reason: Bladder Spasm) Qty: 30 0RF docusate sodium 100 mg Capsule 100 mg PO BID 10 Days Qty: 20 0RF levofloxacin 500 mg Tablet 500 mg PO DAILY Qty: 7 0RF Continued omeprazole 20 mg capsule,delayed release(DR/EC) 20 mg PO DAILY levothyroxine [Synthroid] 50 mcg tablet 50 mcg PO DAILY mecobalamin (vitamin B12) 1,000 mcg lozenge 1,000 mcg PO DAILY Rx Instructions: allow to dissolve in mouth OR may chew lightly before swallowing ascorbic acid (vitamin C) [C-500] 500 mg tablet 500 mg PO DAILY cholecalciferol (vitamin D3) [D3-2000] 50 mcg (2,000 unit) capsule 50 mcg PO DAILY zinc 50 mg tablet 50 mg PO DAILY
== END 2024-12-01 15:33 | disposition home or self-care (01) ==
LOC: ANHSURGERY 09:19 → ANH3MEDSUR 14:31
PROVIDERS: PCP Family Medicine; Visit Provider Urology
PROC: 0VT04ZZ Resection of Prostate, Percutaneous Endoscopic Approach (ICD-10-PCS; CPT 55867; principal; 2024-11-30 08:30)
DX: C61 Malignant neoplasm of prostate (principal); F17.220 Nicotine dependence, chewing tobacco, uncomplicated; E66.9 Obesity, unspecified; Z68.35 Body mass index [BMI] 35.0-35.9, adult; Z98.890 Other specified postprocedural states; Z80.42 Family history of malignant neoplasm of prostate; Z80.3 Family history of malignant neoplasm of breast; Z80.0 Family history of malignant neoplasm of digestive organs
CPT/HCPCS: 55866; 38571; 36415; 80048; 85014; 85018; 88309; A9270; J0690; J1100; J1885; J2003; J2250; J2405; J2704; J3010; J7030; J7120; Q9968

== ENCOUNTER 2024-12-09 11:08 | Outpatient (CLI) | payer OTHER, SELFPAY ==
--- NOTE | ~2024-12-09 | XR_ITS ---
EXAMINATION: CYSTOGRAM DATE: 12/09/2024 12:03 INDICATION: Prostate cancer follow-up TECHNIQUE: Initial hat forming machine feeder radiograph of the pelvis was performed. There was retrograde administration of Omnipaque 350 mixed with saline contrast into patient's existing mart catheter. Fluoroscopic kassandra ges of the pelvis were obtained. A post-void image was also performed. FINDINGS: There is normal filling of the bladder lumen with contrast. Bladder outline is within jose f l limits without significant trabeculation or diverticula. No extravasation of contrast. No evidence for vesicoureteral reflux. No significant post void residual. IMPRESSION: 1. Unremarkable postsurgical cystogram. No evidence for bladder leak. Reviewed, dictated and finalized at location B.
--- OUTSIDE RECORDS SUMMARY | 2024-12-09 11:26 | XMS_ITS ---
Author Organization [facility] Address [address] [place] [id number] Care Team Providers Care Online Program Coordinator Name Role Phone Dr. Sushma Ellington Primary Care Provider [phone] Migration, Provider Unavailable Unavailable Allergies No Known [...] tobacco Encounters Encounter Location Date Provider Diagnosis [facility] [address] [place] [address] 04/25/2024 Provider Migration Plan Of Treatment Next Appt Details Provider Name:Dr. Ordaz [facility], 01/20/2025 11:00:00 AM, [address] [place] [address] [facility], [place], [address], [phone] Progress Notes * Donnie GOODEDOB:1960 (64 yo M)Acc No.[id number]:04/25/2024 Patient: Donnie MEADE :1960 A ge:63 Y S ex:Male Address:[address] [place] [address], [id number] Subjective: * Chief Complaints: * E MR-Kofi [...] , Notes to Pharmacist: *[facility]Zinc oral , Notes to Pharmacist: [facility]Vitamin B Complex oral , Notes to Pharmacist: *[facility]*Omeprazole 20 MG Capsule Delayed Release 1 Oral every day , stop date 12/01/2024Levothyroxine Sodium 50 MCG Tablet 1 Oral every day , stop date 12/01/2024Vitamin C oral , Notes to Pharmacist: *[facility]*Taking Vitamin D3 oral , Notes to Pharmacist: *[facility]*Taking Zinc oral , Notes to Pharmacist: *Pick strength-form from [facility] for eRX*Taking Vitamin B Complex oral , Notes to Pharmacist: *[facility]*Taking Omeprazole 20 MG Capsule Delayed Release 1 Oral every day , stop date 12/01/2024Taking Levothyroxine Sodium 50 MCG Tablet 1 Oral every day , stop date 12/01/2024Taking Vitamin C oral , Notes to Pharmacist: *[facility]* * Allergies: N .K.D.A. * * Date:
--- OUTSIDE RECORDS SUMMARY | 2024-12-09 11:26 | XMS_ITS | Clinical Summary ---
Author Organization [facility] Address [address] [place] [address] Phone Care Team Providers Care Ambulance Mechanic Name Role Phone Sushma Ellington MD [...] Tomas MD - 01/31/2021 9:11 AM CDT [facility] Endoscopy Patient Name: Donnie Gutierrez Procedure [...] of Addenda: [address]; [place] [address] Gunnar Tomas MD GI PROCEDURE ORDERABLES Final Re sult from Last 3 Months or Most Recently Relevant to Health Maintenance Advance Directives For more information, please contact: [phone] * Full Code (Latest Code Status on File) Date Activated Date Inactivated Comments 01/31/2021 8:06 AM 01/31/2021 12:35 PM * Full Code Date Activated Date Inactivated Comments 08/25/2015 8:59 AM 08/25/2015 2:49 PM Care Teams Ambulance Mechanic Relationship Specialty Start Date End Date Sushma Ellington MD PCP - General Family Practice 08/16/15
--- OUTSIDE RECORDS SUMMARY | 2024-12-09 11:27 | XMS_ITS | Patient Health Record ---
Author Organization [facility] Address [address] [place] [address] Care Team Providers Care Travel Coordinator Name Role Phone Dr. Sushma Ellington Primary Care Provider [phone] Wilner Frias Unavailable [phone] Migration, Provider Unavailable Unavailable Allergies No Known Allergies Results Component Value Reference Range Notes Chest X-ray PA and lateral Reviewed date:10/07/2024 [...] Performing Lab: Notes/Report: PSA Total 4.44 ng/mL Prostate Biopsies Reviewed date:12/01/2024 04:00:18 PM Interpretation: Performing Lab: Notes/Report: Reason For Referral Reason elevated PSA Diagnosis 1 Elevated prostate sp ecific antigen [PSA] (R97.20) Referral Organization [facility] Referring Provider First Name Dr. Ordaz Referring Provider Last Name [place] Referring Provider [facility] Referred Provider Marbin Dee Referred Provider Specialty Urology General Notes Sofya Templeton 06/03 03:03:14 PM CARTOON ARTIST >this was ordered in - they made a chart, but stated no clinical documents were uploaded. Referral team can you refax labs and OV for this. Was originally sent in Mar 2024? The person I spoke to in the office stated to fax to [phone] and they will call pt now to schedule an appt., Angi Gouldica 06/03/2024 04:47:10 PM CARTOON ARTIST >Faxed referral with OV and labs to Dr. Dee Clinical Notes Sofya Templeton 06/24 02:56:41 PM CARTOON ARTIST >consult note in chart. Referral Priority Stat Referral Appointment Date 06/07/2024 Medications Medication SIG (Take, Route, Frequency, Duration) Notes Start Date End Date Status Vitamin C oral; Duration: 0 *Pick strength-form from [employer] for eRX* 12/05/2021 Active Zinc oral; Duration: 0 *Pick strength-form from [employer] for eRX* 12/05/2021 Active Vitamin B Complex oral; Duration: 0 *Pick strength-form from [employer] for eRX* 12/05/2021 Active predniSONE 20 MG Tablet 2 tablets Orally Once a day; Duration: 5 days take with food 05/21/2024 Active Levothyroxine Sodium 50 MCG Tablet 1 Oral every day; Duration: 90 Active Vitamin D3 oral; Duration: 0 *Pick strength-form from [employer] for eRX* 12/05/2021 Active Immunizations Vaccine Route Administration Date Status Comme nts Zoster IM Intramuscular 12/05/2021 Administered ,[facility] ename : New immunization record ,immstatus : Complete Zoster IM Intramuscular 02/27/2022 Administered ,[facility] ename : New immunization record ,immstatus : Complete Tdap Unknown 03/16/2011 Administered ,sourcename : Historical information -from other registry Source VFC Code: : Tdap IM Intramuscular 01/02/2016 Administered [...] Problem Status W/U Status Risk Notes Problem Acquired hypothyroidism (282595135) Other specified acquired hypothyroidism (244.8) 09/26/19 19 Problem resolved confirmed Problem Psychosexual dysfunction associated with inhibited sexual excitement (204993368104973) 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) 06/12/19 17 Problem resolved confirmed Problem Tobacco user (970745805) Nondependent tobacco use disorder (305.1) 11/06/19 16 Problem resolved confirmed Problem Allergic rhinitis (67670539) Allergic rhinitis, cause unspecified (477.9) 09/26/19 19 Problem resolved confirmed Problem Acute sinusitis (disorder) (38077377) Other acute sinusitis (461.8) 11/06/19 16 Problem resolved confirmed Problem Acute bronchitis (42565433) Acute bronchitis (466.0) 11/06/19 16 Problem resolved confirmed Problem Esophageal reflux (568503613) Esophageal reflux (530.81) 11/06/19 16 Active confirmed Problem Cramp in limb (308369898) Cramp of limb (729.82) 09/26/19 19 Problem resolved confirmed Problem Generalized atopic dermatitis (943710646) Other atopic dermatitis and related conditions (691.8) 06/12/19 17 Active confirmed Problem Actinic keratosis (628771) Actinic keratosis (702.0) 06/12/19 17 Active confirmed Problem Arthralgia of the pelvic region and thigh (908869000) Pain in joint, pelvic region and thigh (719.45) 10/24/19 17 Active confirmed Problem Spasm (38940262) Spasm of muscle (728.85) 11/06/19 16 Problem resolved confirmed Problem Pain in limb (57696169) Pain in soft tissues of limb (729.5) 11/06/19 16 Active confirmed Problem Malaise and fatigue (339664150) Other malaise and fatigue (780.79) 09/26/19 19 Problem resolved confirmed Problem Vaccination needed (393844131487048) Need for prophylactic vaccination and inoculation, Other viral diseases (V04.89) 09/26/19 19 Problem resolved confirmed Problem General examination of patient (344487188) Routine general medical examination at health care facility (V70.0) 06/12/19 17 Active confirmed Problem Viral screening (355113789) Special screening examination for other specified viral diseases (V73.89) 06/12/19 17 Problem resolved confirmed Problem Family history: Cardiovascular disease (situation) (629971529) Family history of other cardiovascular diseases (V17.4) 11/06/19 16 Problem resolved confirmed Problem Screening for malignant neoplasm of prostate (659561541) Special screening for malignant neoplasm of prostate (V76.44) 09/26/19 19 Problem resolved confirmed Problem Tinea unguium (675305751) Tinea unguium (B35.1) 12/08/19 24 Active confirmed Problem Lipoma (93890639) Benign lipomat ous neoplasm, 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) 12/06/19 22 Active confirmed Problem Hypothyroidism (66870667) Hypothyroidism, unspecified (E03.9) 12/04/19 22 Active confirmed Problem Vitamin B deficiency (66976768) Deficiency of other specified B group vitamins (E53.8) 12/05/19 23 Active confirmed Problem Vitamin D deficiency (43704162) Vitamin D deficiency, unspecified (E55.9) 12/05/19 23 Active confirmed Problem Male erectile disorder (546998245) Male erectile disorder (F52.21) 06/12/19 17 Problem resolved confirmed Problem Acute atopic conjunctivitis (30588982) Acute atopic conjunctivitis, unspecified eye (H10.10) 12/08/19 24 Active confirmed Problem Acute pansinusitis (5415777) Acute pansinusitis, unspecified (J01.40) 11/06/19 16 Problem resolved confirmed Problem Acute bronchitis (50845881) Acute bronchitis, unspecified (J20.9) 11/06/19 16 Problem resolved confirmed Problem Allergic rhinitis (22210539) Allergic rhinitis, unspecified (J30.9) 09/26/19 19 Problem resolved confirmed Problem Gastro-esophageal reflux disease without esophagitis (493681256) Gastro-esophageal reflux disease without esophagitis (K21.9) 12/04/19 22 Active confirmed Problem Umbilical hernia (858761201) Umbilical hernia without obstruction or gangrene (K42.9) 12/08/19 24 Active confirmed Problem Atopic dermatitis (46446007) Atopic dermatitis, unspecified (L20.9) 06/12/19 17 Problem resolved confirmed Problem Actinic keratosis (630874) Actinic keratosis (L57.0) 06/09/19 24 Active confirmed Problem Seborrheic keratosis (41352767) Other seborrheic keratosis (L82.1) 06/09/19 24 Active confirmed Problem Hypertrophic condition of skin (86990922) Other hypertrophic disorders of the skin (L91.8) 12/06/19 22 Active confirmed Problem Knee joint effusion (926566440) Effusion, right knee (M25.461) 12/26/19 24 Active confirmed Problem Arthralgia of the pelvic region and thigh (062351969) Pain in right hip (M25.551) 10/24/19 17 Problem resolved confirmed Problem Spasm (09610161) Other muscle spasm (M62.838) 11/06/19 16 Problem resolved confirmed Problem Ganglion cyst (903664469) Ganglion, unspecified site (M67.40) 06/09/19 24 Active confirmed Problem Enthesopathy of knee (58004757) Other bursitis of knee, unspecified knee (M70.50) 12/18/19 24 Active confirmed Problem Pain in left leg (448711525) Pain in left leg (M79.605) 11/06/19 16 Problem resolved confirmed Problem Pain in limb (04286388) Pain in right toe(s) (M79.674) 06/09/19 24 Active confirmed Problem Spasm (76864112) Cramp and spasm (R25.2) 09/26/19 19 Problem resolved confirmed Problem Fatigue (61634753) Other fatigue (R53.83) 09/26/19 19 Problem resolved confirmed Problem Hyperglycemia (94602954) Hyperglycemia, unspecified (R73.9) 12/06/19 22 Active confirmed Problem Blood chemistry abnormal (340630179) Other specified abnormal findings of blood chemistry (R79.89) 12/07/19 22 Problem resolved confirmed Problem Adult health examination (085101977) Encounter for general adult medical examination without abnormal findings (Z00.00) 12/06/19 22 Active confirmed Problem Viral screening (441076271) Encounter for screening for other viral diseases (Z11.59) 06/12/19 17 Problem resolved confirmed Problem Screening for malignant neoplasm of prostate (492468466) Encounter for screening for malignant neoplasm of prostate (Z12.5) 12/04/19 22 Active confirmed Problem Vaccination given (418393439) Encounter for immunization (Z23) 12/06/19 22 Active confirmed Problem Immunization not carried out because of patient refusal (Z28.21) 12/06/19 22 Active confirmed Problem Tobacco use (685546452) Tobacco use (Z72.0) 12/02/19 24 Active confirmed Problem History of thromboembolism of vein (582612606) Personal history of other venous thrombosis and embolism (Z86.718) 11/06/19 16 Problem resolved confirmed Problem Prediabetes (750748330) Prediabetes (R73.03) 12/07/19 23 Active confirmed Problem Elevated PSA (693197245) Elevated prostate specific antigen [PSA] (R97.20) 01/09/20 24 Active confirmed Problem Enlarged prostate (053791419) Enlarged prostate without lower urinary tract symptoms (N40.0) 05/22/20 22 Active confirmed Vital Signs Heart Rate 106 /min 05/21/2024 Temperature 96.9 degrees Fahrenheit 05/21/2024 Respiratory Rate 24 /min 05/17/2024 Height-cm 182.88 cm 05/21/2024 Oximetry 96 % 05/21/2024 Blood pressure diastolic 88 mm Hg 05/21/2024 Weight-kg 126.35 kg 01/08/2024 Height 72.00 in 05/21/2024 Blood pressure systolic 130 mm Hg 05/21/2024 Weight 278.55 lbs 01/08/2024 Encounters Encounter Location Date Provider Diagnosis [address] [address] 12/18/2023 Wilner Rodriguez Other bursitis of knee, unspecified knee M70.[address] [address] 12/26/2023 Wilner Rodriguez Effusion, right knee M25.461 and Other bursitis of knee, unspecified knee M70.[address] [address] 01/08/2024 Wilner Rodriguez Effusion, right knee M25.461 and Other bursitis of knee, unspecified knee M70.[address] [address] 01/09/2024 Provider Migration Other bursitis of knee, unspecified knee M70.50 ; Elevated prostate specific antigen [PSA] R97.20 and Tobacco use Z72.[address] [address] 01/13/2024 Provider Migration Elevated prostate specific antigen [PSA] R97.20 and Tobacco use Z72.[address] [address] 04/09/2024 Provider Migration Tinea unguium B35.1 ; Tobacco use Z72.0 and Elevated prostate specific antigen [PSA] R97.[address] [address] 04/13/2024 Provider Migration Elevated prostate specific antigen [PSA] R97.20 and Tobacco use Z72.[address] [address] 05/17/2024 Dr. Sushma Ellington Acute cough R05.1 ; Acute non-recurrent sinusitis, unspecified location J01.90 ; Acute pneumonia J18.9 and Seborrheic keratosis L82.[address] [address] 05/21/2024 Dr. Sushma Ellington Acute pneumonia J18.9 and Acute cough R05.[address] [address] 04/24/2024 Provider Migration [address] [address] 04/25/2024 Provider Migration Assessments Encounter Date Diagnosis (ICD Code) Assessment Notes Treatment Notes Treatment Clinical Notes Section Notes 05/21/2024 Acute cough (ICD-10 - R05.1) 05/21/2024 Acute pneumonia (ICD-10 - J18.9) CXR doesn't show infiltrate but does show some hazy appearance. continue moxifloxacin start codeine for the severe cough start prednisone consider adding symbicort call if not improving next week 04/09/2024 Tinea unguium (ICD-10 - B35.1) 04/09/2024 Tobacco use (ICD-10 - Z72.0) 04/09/2024 Elevated prostate specific antigen [PSA] (ICD-10 - R97.20) 01/13/2024 Tobacco use (ICD-10 - Z72.0) 01/13/2024 Elevated prostate specific antigen [PSA] (ICD-10 - R97.20) 01/09/2024 Other bursitis of knee, unspecified knee (ICD-10 - M70.50) 01/09/2024 Tobacco use (ICD-10 - Z72.0) 01/09/2024 Elevated prostate specific antigen [PSA] (ICD-10 - R97.20) 12/26/2023 Effusion, right knee (ICD-10 - M25.461) 12/26/2023 Other bursitis of knee, unspecified knee (ICD-10 - M70.50) 12/18/2023 Other bursitis of knee, unspecified knee [...] Name:Dr. Sushma ibarra, 01/20/2025 11:00:00 AM, [address] [facility], [place], [address], [id number] Insurance Providers Payer Name Payer Address Payer Phone Subscriber Number Group Number Insured Name Patient Relationship to Insured Coverage Start Date Coverage End Date [facility] [address] [address] [place] [address] [id number] Donnie Gutierrez Self - patient is the insured 3 Medications Administered Medication Instructions Date of Administration Dosage Notes dexAMETHasone 05/17/2024 6 mg Medical (General) History Surgical History Surgery Date(Month/Year) Arthroscopy ,notes : knee Colonoscopy, flexible, proxi mal to splenic flexure; diagnostic, with or without collection of specim 7 Dr Dee - Robotic assist ed, nerve-sparing prostatectomy with left pelvic lymph node dissection 11/30/2024
--- OUTSIDE RECORDS SUMMARY | 2024-12-09 11:27 | XMS_ITS | Clinical Summary ---
Author Organization [facility] Address [address] [facility] [place] [address] Care Team Providers Care Hand Marker Name Role Phone Sushma Ellington MD Primary Care Provider Source Comments [facility],non-owned Affiliates and Associated Physician Practices is amultiple site organization consisting of ambulatory clinics and hospital sitesin [place], [place], [place] and [place]. This disclosure is being madepursuant to the Care Everywhere program and may not contain all information available regarding this patient. 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 Gender Identity Not on file Sexual Orientation [...] VACCINE (1 of 2) 2011 COVID-19 VACCINE (1 - 2023-2 5 season) 2024 DEPRESSION SCREENING 05/26/2024 INFLUENZA VACCINE (#1) 2025 Respiratory Syncytial Virus (RSV) Vaccine Pt: [...] patient's age to complete this topic Insurance [place] [address] [facility] SELF PAY NO INSURANCE Member Subscriber Plan / Payer (Ef fective for All Dates) Name:Easton Gutierrez Member ID:Not on file Relation to Subscriber:Not on file Name:EASTON GUTIERREZ Subscriber ID:Not on file (Home) Address: [address] [place] [id number] Payer ID:Not on file Group ID:Not on file Type:Self Pay Address: [place], [place] Care Teams Hand Marker Relationship Specialty Start Date End Date Sushma Ellington MD [address] [place] [address] PCP - General Family Medicine 02/06/24
--- OUTSIDE RECORDS SUMMARY | 2024-12-09 11:27 | XMS_ITS | Clinical Summary ---
Author Organization [facility] Address [address] [place] [address] Phone Care Team Providers Care Territory Manager Name Role Phone Sushma Ellington MD Primary [...] to complete this topic Insurance Care Teams Territory Manager Relationship Specialty Start Date End Date Sushma Ellington MD PCP - General Family Medicine 01/29/19
== END 2024-12-09 11:09 | disposition home or self-care (01) ==
PROVIDERS: PCP Family Medicine; Visit Provider Urology
DX: C61 Malignant neoplasm of prostate (principal)
CPT/HCPCS: 51600; 74430; Q9967